=== PATIENT | male | born 1960 | race Caucasian/White ===

== ENCOUNTER 2024-07-23 14:37 | Outpatient (REF) | payer OTHER, SELFPAY | END 2024-07-23 14:38 | disposition home or self-care (01) | LOC: HO.XRAY 14:37 | PROVIDERS: PCP Internal Medicine; Visit Provider Orthopaedic Surgery | DX: M17.12 Unilateral primary osteoarthritis, left knee (principal) | CPT/HCPCS: 73560 ==

== ENCOUNTER 2024-09-02 09:54 | Outpatient (AMB) | payer OTHER, SELFPAY ==
--- NOTE | 2024-09-02 09:55 | MHC.OFFVIS ---
Vital Signs 09/02/24 09:56 Height 5 ft 10 in Weight 210 lb BMI 30.1 Intake Visit Reasons: Left knee pain Intake Note: Navin is a 64 year old male who presents with complaints of progressively worsening left knee pain. He describes his pain as sharp and severe in nature. He did undergo left knee ?meniscus? surgery by Dr. Persaud several years ago. He got fairly good relief from that surgery initially. His pain has gotten worse over the last year. He has failed the last 3 months of conservative treatment which has included physical therapy exercises, topical creams, Tylenol and anti-inflammatory medicines. He has had cortisone injections in the past which gave him no relief. At this point his left knee pain is interfering with his activities of daily living and his ability to sleep well through the night. He wishes to hold off on total knee replacement surgery for as long as possible. Allergies morphine [MORPHINE] Allergy (Unknown, Unverified 09/02/24 09:57) UNKNOWN Medication List - Last Reconciled 09/02/24 by Andrew Cochran MD aspirin 81 mg PO DAILY atorvastatin 40 mg PO DAILY fenofibrate micronized 200 mg PO DAILY omeprazole 20 mg PO QAM tamsulosin 0.4 mg PO BID PFSH Medical History (Updated 09/03/24 @ 07:31 by Andrew Cochran MD) BPH (benign prostatic hyperplasia) Pancreatitis Hyperlipidemia Hiatal hernia GERD (gastroesophageal reflux disease) Tubular adenoma of colon Surgical History (Updated 11/11/23 @ 09:54 by Marleny Lester RN) Hx of knee surgery Hx of colectomy Hx of carpal tunnel repair History of surgery on wrist Hx of hernia repair History of esophagogastroduodenoscopy (EGD) H/O colonoscopy Physical Exam Vital Signs: BMI result Body Mass Index 30.1 Const Other: Well-nourished well-developed very friendly male awake alert and oriented x3 in no acute distress Extrem Other: Bilateral lower extremity examination shows good capillary refill, no skin lesions noted, normal sensation light touch Left knee examination shows a minimal effusion, palpable crepitus with range of motion, pain with range of motion, range of motion from -3 degrees to 115 degrees, no instability Results Reviewed Results Reviewed: X-rays of the patient's left knee show joint space narrowing, subchondral sclerosis, no acute bony abnormalities Assessment & Plan Assessment & Plan (1) Left knee pain: Code(s): M25.562 - Pain in left knee (2) Osteoarthritis of left knee: Code(s): M17.12 - Unilateral primary osteoarthritis, left knee Category: Medical Plan Mr. Sommer presents with progressively worsening left knee pain due to osteoarthritis. I had a lengthy discussion with the patient regarding the treatment options. He wishes to hold off on surgery for as long as possible. I agree with this plan. He has not gotten good relief from cortisone injections in the past. Thus, I will see whether or not his insurance company will cover a viscosupplementation injection. I will see him back once the injection is available. Feel free to call me at any time should questions regarding his orthopedic management arise. Thank you very much for asking me to see this very friendly gentleman. I spent 22 minutes in reviewing the patient's records and imaging studies, seeing the patient and documenting in the medical record. Coding Level of Care Code New Pt Level 3 (75497) Complex EM visit Add On G2211 Diagnoses Left knee pain M25.562 Osteoarthritis of left knee M17.12
[2024-09-02 09:56] VITALS: BMI 30.1
--- OUTSIDE RECORDS SUMMARY | 2024-09-08 17:21 | XMS_ITS ---
Author Name [facility] Organization Unknown History of Medication Use Medication Directions Dispensed Refills Start Date End Date [facility] atorvastatin 40 mg tablet TAKE 1 TABLET BY MOUTH EVERY DAY 03/22/2023 active tamsulosin 0.4 mg capsule TAKE 1 CAPSULE BY MOUTH TWICE A DAY 04/17/2023 active sildenafil 50 mg tablet TAKE 1 TABLE 1 HOUR BEFORE SEXUAL ACTIVITY 03/22/2023 completed doxycycline hyclate 100 mg capsule TAKE 1 CAPSULE BY MOUTH TWICE A DAY 04/17/2023 completed tamsulosin 0.4 mg capsule TAKE 1 CAPSULE BY MOUTH TWICE A DAY 03/22/2023 active ciprofloxacin 500 mg tablet TAKE 1 TABLET BY MOUTH 1 HOUR BEFORE PROCEDURE AND 1 TABLET 1O HOURS AFTER 04/17/2023 completed triamcinolone acetonide 40 mg/mL suspension for injection Take 40 mg by injection route. 04/17/2023 active prednisone 10 mg tablet PLEASE SEE ATTACHED FOR DETAILED DIRECTIONS 03/22/2023 completed azelastine 0.05 % eye drops TAKE 1 DROP (OPHTHALMIC (EYE) - BILATERALLY) 2 TIMES PER DAY FOR 7 DAYS 03/22/2023 active prednisone 10 mg tablet PLEASE SEE ATTACHED FOR DETAILED DIRECTIONS 04/17/2023 completed triamcinolone acetonide 40 mg/mL suspension for injection Take 40 mg by injection route. 03/22/2023 active lidocaine HCl 10 mg/mL (1 %) injection solution Take 10 mg by injection route. 03/22/2023 active atorvastatin 40 mg tablet TAKE 1 TABLET BY MOUTH EVERY DAY 04/17/2023 active ciprofloxacin 500 mg tablet TAKE 1 TABLET BY MOUTH 1 HOUR BEFORE PROCEDURE AND 1 TABLET 1O HOURS AFTER 03/22/2023 completed lidocaine HCl 10 mg/mL (1 %) injection solution Take 10 mg by injection route. 04/17/2023 active omeprazole 20 mg capsule,delayed release TAKE 1 CAPSULE BY MOUTH EVERY DAY 03/22/2023 active Paxlovid 300 mg (150 mg x 2)-100 mg tablets in a dose pack TAKE 2 TAB (300MG) NIRMATRELVIR & TAKE 1 TAB (100MG) RITONAVIR TWICE A DAY X5 DAYS 03/22/2023 completed doxycycline hyclate 100 mg capsule TAKE 1 CAPSULE BY MOUTH TWICE A DAY 03/22/2023 completed sildenafil 50 mg tablet TAKE 1 TABLE 1 HOUR BEFORE SEXUAL ACTIVITY 04/17/2023 active azelastine 0.05 % eye drops TAKE 1 DROP (OPHTHALMIC (EYE) - BILATERALLY) 2 TIMES PER DAY FOR 7 DAYS 04/17/2023 active ibuprofen 800 mg tablet TAKE 1 TABLET BY MOUTH THREE TIMES A DAY WITH FOOD 04/17/2023 active ibuprofen 800 mg tablet TAKE 1 TABLET BY MOUTH THREE TIMES A DAY WITH FOOD 03/22/2023 active Paxlovid 300 mg (150 mg x 2)-100 mg tablets in a dose pack TAKE 2 TAB (300MG) NIRMATRELVIR & TAKE 1 TAB (100MG) RITONAVIR TWICE A DAY X5 DAYS 04/17/2023 completed fenofibrate 160 mg tablet TAKE 1 TABLET BY MOUTH EVERY DAY 04/17/2023 active fenofibrate 160 mg tablet TAKE 1 TABLET BY MOUTH EVERY DAY 03/22/2023 active omeprazole 20 mg capsule,delayed release TAKE 1 CAPSULE BY MOUTH EVERY DAY 04/17/2023 active Problems Problem Status Onset Date Problem Type Date of Resoluti on Source Lumbar spondylosis active 2023-04-15 ProblemAct [facility] Arthritis of left knee active 2022-12-14 ProblemAct [facility] Pain of left knee joint active 2022-12-14 ProblemAct [facility] Low back pain active 2023-04-15 ProblemAct [facility] Paresthesia of lower extremity active 2023-04-15 ProblemAct [facility]
--- OUTSIDE RECORDS SUMMARY | 2024-09-08 17:21 | XMS_ITS ---
Author Organization [facility] Address [address] [place] [address] Care Team Providers Care Delivery Specialist Name Role Phone Vladimir Saeed MD Primary Care Provider Unavailab Rashaad Foster Unavailable [phone] REASON FOR VISIT screening,hx polyps Encounters Encounter Location Date Provider Diagnosis [facility] [place] [address] [place] [phone] 09/11/2023 Rashaad Perez PLAN OF TREATMENT No Information
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
--- OUTSIDE RECORDS SUMMARY | 2024-09-08 17:21 | XMS_ITS ---
Author Organization [facility] Address [address] [place] [address] Care Team Providers Care Medical Record Consultant Name Role Phone Vladimir Saeed MD Primary Care Provider Unavailab Rashaad Foster Unavailable [phone] REASON FOR VISIT screening,hx polyps Encounters Encounter Location Date Provider Diagnosis [facility] Outpatient [address] [place] [id number] 11/13/2023 Rashaad Perez PLAN OF TREATMENT No Information
--- OUTSIDE RECORDS SUMMARY | 2024-09-08 17:21 | XMS_ITS ---
Author Organization [facility] Address [address] [place] [address] Care Team Providers Care Retail Banking Manager Name Role Phone Vladimir Saeed MD Primary Care Provider Unavailab Rashaad Foster [phone] REASON FOR VISIT cancel procedure Encounters Encounter Location Date Provider Diagnosis [facility] [address] [place] [address] 11/11/2023 Rashaad Perez PLAN OF TREATMENT No Information
--- OUTSIDE RECORDS SUMMARY | 2024-09-08 17:21 | XMS_ITS | Patient Health Record ---
Author Organization [facility] Address [address] [place] [address] Care Team Providers Care Weapons System Instrument Mechanic Name Role Phone Vladimir Saeed MD Primary Care Provider UnavailRashaad Goss Unavailable [phone] ALLERGIES No Known Allergies REASON FOR REFERRAL No Information MEDICATIONS Medication SIG (Take, Route, Frequency, Duration) Notes Start Date End Date Status Aspir-81 Active Omeprazole 20 MG 1 capsule 30 minutes before morning meal Orally Once a day Active Atorvastatin Calcium 40 MG 1 tablet Oral ly Once a day Active Fenofibrate Micronized 200 MG 1 capsule with a meal Orally Once a day Active Tamsulosin HCl 0.4 MG TAKE 1 CAPSULE BY MOUTH TWICE A DAY Oral for 90 Active SOCIAL HISTORY Sex Assigned At : Social History Observation Description Sex Assigned At Unknown Alcohol Screen Question Answer Notes Did you have a drink contain ing alcohol in the past year? Yes How often did you have a dri nk containing alcohol in the past year? 4 or more times a week (4 points) How many drinks did you have on a typical day when you were drinking in the past year? 3 or 4 drinks (1 point) How often did you have 6 or more drinks on one occasion in the past year? Never (0 point) Points 5 Interpretation Positive PROBLEMS Problem Type ICD Code Onset Dates Problem Status W/U Status Risk SNOMED Code Notes Problem Colon cancer screening (Z12.11) Active confirmed 376486484 Problem History of adenomatous polyp of colon (Z86.010) Active confirmed 492697124 Problem Gastroesophageal reflux disease without esophagitis (K21.9) Active confirmed 044591490 Encounters Encounter Location Date Provider Diagnosis [facility] Out[place] [address] [facility] [place] [id number] 09/11/2023 Rashaad Perez [facility] Outpatient [address] [facility] [place] [id number] 11/13/2023 Rashaad Ana [facility] [address] [place] [address] 11/11/2023 Rashaad Perez PLAN OF TREATMENT Future Test Test Name Order Date UPPER GI ENDOSCOPY 02/01/2015 COLONOSCOPY 06/18/2023 Insurance Providers Payer Name Payer Address Payer Phone Subscriber Number Group Number Insured Name Patient Relationship to Insured Coverage Start Date Coverage End Date [employer] [address] [place], [place] [id number] RAFAELA COREA Self - patient is the insured [facility] Insurance [address] [place] [address] RAFAELA COREA Self - patient is the insured MEDICAL (GENERAL) HISTORY Medical History History ICD Code Colon polyps--He had his nory ginal colonoscopy in January of 2004 with the removal of a 2 cm sigmoid colon tubular adenoma with focal high-grade dysplasia. Subsequent colonoscopies in 2004, 2007, and in April of 2012 have been negative for any recurrent polyps. GERD-an upper endoscopy in revealed a small hiatal hernia, but no other significant abnormalities Hyperlipidemia Denies MN,DM,CVA,Lung disease,renal dise ase Pancreatitis in 2014 due to alcohol EGD in 2014--small hiatal he rnia, gastritis, duodenitis, and reflux--biopsies were negative for H. pylori and negative for Cowan's esophagus. Elevated PSA but negative biopsies BPH Surgical History Surgery Date(Month/Year) Hernia surgery x3 Wrist surgery Carpal tunnel Sigmoid Colectomy in 04/2011 for divertculitis--this was done by Dr. Rocha at [facility] Knee surgery
== END 2024-09-02 10:28 | disposition home or self-care (01) ==
PROVIDERS: PCP Internal Medicine; Visit Provider Orthopaedic Surgery
DX: M25.562 Pain in left knee (principal); M17.12 Unilateral primary osteoarthritis, left knee
CPT/HCPCS: 99203; G2211

== ENCOUNTER → 2024-09-02 09:54 | Outpatient (BNVA) | payer OTHER, SELFPAY | PROVIDERS: PCP Internal Medicine; Visit Provider Orthopaedic Surgery | DX: M17.12 Unilateral primary osteoarthritis, left knee (principal) | CPT/HCPCS: 99202 ==

== ENCOUNTER 2024-09-14 08:55 | Outpatient (AMB) | payer OTHER, SELFPAY ==
--- NOTE | 2024-09-14 08:58 | MHC.OFFVIS ---
Vital Signs 09/14/24 09:02 Height 5 ft 10 in Weight 210 lb BMI 30.1 Intake Visit Reasons: Left knee pain Intake Note: Navin is a 64 year old male who presents with complaints of progressively worsening left knee pain. He describes his pain as sharp in nature. He has failed the last 3 months of conservative treatment which has consisted of physical therapy exercises, Tylenol and anti-inflammatory medicines. He wishes to hold off on surgery for as long as possible. Allergies morphine [MORPHINE] Allergy (Unknown, Unverified 09/14/24 09:02) UNKNOWN Medication List - Last Reconciled 09/14/24 by Andrew Cochran MD aspirin 81 mg PO DAILY atorvastatin 40 mg PO DAILY fenofibrate micronized 200 mg PO DAILY omeprazole 20 mg PO QAM tamsulosin 0.4 mg PO BID PFSH Medical History (Updated 09/03/24 @ 07:31 by Andrew Cochran MD) BPH (benign prostatic hyperplasia) Pancreatitis Hyperlipidemia Hiatal hernia GERD (gastroesophageal reflux disease) Tubular adenoma of colon Surgical History (Updated 11/11/23 @ 09:54 by Marleny Lester RN) Hx of knee surgery Hx of colectomy Hx of carpal tunnel repair History of surgery on wrist Hx of hernia repair History of esophagogastroduodenoscopy (EGD) H/O colonoscopy Physical Exam Vital Signs: BMI result Body Mass Index 30.1 Const Other: Well-nourished well-developed very friendly male awake alert and oriented x3 in no acute distress Extrem Other: Bilateral lower extremity examination shows good capillary refill, no skin lesions noted, normal sensation light touch Left knee examination shows a minimal effusion, palpable crepitus with range of motion, pain with range of motion, no instability Office Procedures AMB Joint Injection/Aspiration Joint Injection/Aspiration Primary Site: left knee Prep: site was prepped using aseptic technique Injected: 20 mg of (Euflexxa viscosupplementation) and 1% plain lidocaine Procedure: The patient tolerated the procedure well Coding 69963 - Large joint Procedure code (CPT) selection complete Results Reviewed Results Reviewed: X-rays of the patient's left knee taken previously show joint space narrowing, subchondral sclerosis, no acute bony abnormalities Assessment & Plan Assessment & Plan (1) Osteoarthritis of left knee: Code(s): M17.12 - Unilateral primary osteoarthritis, left knee Category: Medical (2) Left knee pain: Code(s): M25.562 - Pain in left knee Plan Mr. Sommer presents with left knee pain due to osteoarthritis. The risks and benefits of a series of Euflexxa viscosupplementation injections were discussed at length with the patient. The patient wished to proceed. He tolerated the 1st injection well. He will follow up next week as scheduled. Feel free to call me at any time should questions regarding his orthopedic management arise. I spent 20 minutes in reviewing the patient's records and imaging studies, seeing the patient and documenting in the medical record. Orders: Orders AMB Joint Injection/Aspiration Today M17.12 - Unilateral primary osteoarthritis, left knee Coding Level of Care Code Est Pt Level 3 (87082) Complex EM visit Add On G2211 Diagnoses Osteoarthritis of left knee M17.12 Left knee pain M25.562 CPT Codes Coding - 95286 Large joint: 74066 - Large joint ([id number])
[2024-09-14 09:02] VITALS: BMI 30.1
--- OUTSIDE RECORDS SUMMARY | 2024-09-14 09:07 | XMS_ITS | Patient Health Record ---
Author Organization [facility] Address [address] [place] [address] Care Team Providers Care Hide Buyer Name Role Phone Vladimir Saeed MD Primary Care Provider UnavailRashaad Goss Unavailable [phone] ALLERGIES No Known Allergies REASON FOR REFERRAL [...] Problem Colon cancer screening (Z12.11) Active confirmed 283173468 Problem History of adenomatous polyp of colon (Z86.010) Active confirmed 927251965 Problem Gastroesophageal reflux disease without esophagitis (K21.9) Active confirmed 294363426 Encounters Encounter Location Date Provider Diagnosis [facility] [place] [address] [facility] [place] [id number] 11/13/2023 Rashaad Perez [facility] [address] [place] [address] 11/11/2023 Rashaad Perez PLAN OF TREATMENT Future Test Test Name Order Date UPPER GI ENDOSCOPY 02/01/2015 COLONOSCOPY 06/18/2023 Insurance Providers Payer Name Payer Address Payer Phone Subscriber Number Group Number Insured Name Patient Relationship to Insured Coverage Start Date Coverage End Date [employer] [address] [place], [place] [id number] ANMOL PANCHITOSANJAY Self - patient is the insured [facility] Insurance [address] [place] [address] ANMOLPANCHITOSANJAY Self - patient is the insured MEDICAL [...] but no other significant abnormalities Hyperlipidemia Denies NM,DM,CVA,Lung disease,renal dise ase Pancreatitis in 2014 due to alcohol EGD in 2014--small hiatal he rnia, gastritis, duodenitis, and reflux--biopsies were negative for H. pylori and negative for Cowan's esophagus. Elevated PSA but negative biopsies BPH Surgical History Surgery Date(Month/Year) Hernia surgery x3 Wrist surgery Carpal tunnel Sigmoid Colectomy in 04/2011 for divertculitis--this was done by Dr. Rocha at [facility] Knee surgery
--- OUTSIDE RECORDS SUMMARY | 2024-09-14 09:07 | XMS_ITS ---
Author Organization [facility] Address [address] [place] [address] Care Team Providers Care Electronic Scale Tester Name Role Phone Vladimir Saeed MD Primary Care Provider Unavailab Rashaad Foster Unavailable [phone] REASON FOR VISIT screening,hx polyps Encounters Encounter Location Date Provider Diagnosis [facility] Outpatient [address] [place] [id number] 09/11/2023 Rashaad Perez PLAN OF TREATMENT No Information
--- OUTSIDE RECORDS SUMMARY | 2024-09-14 09:07 | XMS_ITS ---
Author Organization [facility] Address [address] [place] [address] Care Team Providers Care Scheduler Name Role Phone Vladimir Saeed MD Primary Care Provider Unavailab Rashaad Foster [phone] REASON FOR VISIT cancel procedure Encounters Encounter Location Date Provider Diagnosis [facility] [address] [place] [id number] 11/11/2023 Rashaad Perez PLAN OF TREATMENT No Information
--- OUTSIDE RECORDS SUMMARY | 2024-09-14 09:07 | XMS_ITS ---
Author Organization [facility] Address [address] [place] [address] Care Team Providers Care Cathode Ray Tube Salvage Processor Name Role Phone Vladimir Saeed MD Primary Care Provider Unavailab Rashaad Foster Unavailable [phone] REASON FOR VISIT screening,hx polyps Encounters Encounter Location Date Provider Diagnosis [facility] Outpatient [address] [place] [id number] 11/13/2023 Rashaad Perez PLAN OF TREATMENT No Information
== END 2024-09-14 09:14 | disposition home or self-care (01) ==
PROVIDERS: PCP Internal Medicine; Visit Provider Orthopaedic Surgery
DX: M17.12 Unilateral primary osteoarthritis, left knee (principal)
CPT/HCPCS: 20610; 99213

== ENCOUNTER → 2024-09-14 08:55 | Outpatient (BNVA) | payer OTHER, SELFPAY | PROVIDERS: PCP Internal Medicine; Visit Provider Orthopaedic Surgery | DX: M17.12 Unilateral primary osteoarthritis, left knee (principal) | CPT/HCPCS: 20610; 99212; J2003; J7323 ==

== ENCOUNTER 2024-09-21 08:56 | Outpatient (AMB) | payer OTHER, SELFPAY ==
--- NOTE | 2024-09-21 08:57 | MHC.OFFVIS ---
Vital Signs 09/21/24 08:58 Height 5 ft 10 in Weight 210 lb BMI 30.1 Intake Visit Reasons: Inj-Left Knee Euflexxa #2 Intake Note: Navin is a 64 year old male who presents for follow up of his left knee pain. He states that he got mild relief from the 1st Euflexxa injection. He continues with his home exercise program. Allergies morphine [MORPHINE] Allergy (Unknown, Unverified 09/21/24 08:58) UNKNOWN Medication List - Last Reconciled 09/21/24 by Andrew Cochran MD aspirin 81 mg PO DAILY atorvastatin 40 mg PO DAILY fenofibrate micronized 200 mg PO DAILY omeprazole 20 mg PO QAM tamsulosin 0.4 mg PO BID PFSH Medical History (Updated 09/03/24 @ 07:31 by Andrew Cochran MD) BPH (benign prostatic hyperplasia) Pancreatitis Hyperlipidemia Hiatal hernia GERD (gastroesophageal reflux disease) Tubular adenoma of colon Surgical History (Updated 11/11/23 @ 09:54 by Marleny Lester RN) Hx of knee surgery Hx of colectomy Hx of carpal tunnel repair History of surgery on wrist Hx of hernia repair History of esophagogastroduodenoscopy (EGD) H/O colonoscopy Physical Exam Vital Signs: BMI result Body Mass Index 30.1 Extrem Other: Left knee examination shows a minimal effusion, palpable crepitus with range of motion, no instability Office Procedures AMB Joint Injection/Aspiration Joint Injection/Aspiration Primary Site: left knee Injected: 20 mg of (Euflexxa viscosupplementation) and 1% plain lidocaine Procedure: The patient tolerated the procedure well Coding 25089 - Large joint Procedure code (CPT) selection complete Results Reviewed Results Reviewed: X-rays of the patient's left knee taken previously show joint space narrowing, subchondral sclerosis, no acute bony abnormalities Assessment & Plan Assessment & Plan (1) Osteoarthritis of left knee: Code(s): M17.12 - Unilateral primary osteoarthritis, left knee Category: Medical Plan Mr. Sommer presents with left knee pain due to osteoarthritis. The risks and benefits of a 2nd Euflexxa injection were discussed at length with the patient. The patient wished to proceed. He tolerated the injection well. He will continue with his home exercise program. He will follow up next week as scheduled. Feel free to call me at any time should questions regarding his orthopedic management arise. Orders: Orders AMB Joint Injection/Aspiration Today M17.12 - Unilateral primary osteoarthritis, left knee Coding Level of Care Code Procedure Only Diagnoses Osteoarthritis of left knee M17.12 CPT Codes Coding - 79449 Large joint: 46153 - Large joint ([id number])
[2024-09-21 08:58] VITALS: BMI 30.1
--- OUTSIDE RECORDS SUMMARY | 2024-09-21 08:59 | XMS_ITS ---
Author Organization [facility] Address [address] [place] [address] Care Team Providers Care Car Sweeper Name Role Phone Vladimir Saeed MD Primary Care Provider Unavailab Rashaad Foster [phone] REASON FOR VISIT cancel procedure Encounters Encounter Location Date Provider Diagnosis [facility] [address] [place] [phone] 11/11/2023 Rashaad Perez PLAN OF TREATMENT No Information
--- OUTSIDE RECORDS SUMMARY | 2024-09-21 08:59 | XMS_ITS ---
Author Organization [facility] Address [address] [place] [address] Care Team Providers Care Airline Pilot Flight Instructor Name Role Phone Vladimir Saeed MD Primary Care Provider Unavailab Rashaad Foster Unavailable [phone] REASON FOR VISIT screening,hx polyps Encounters Encounter Location Date Provider Diagnosis [facility] Outpatient [address] [place] [id number] 09/11/2023 Rashaad Perez PLAN OF TREATMENT No Information
--- OUTSIDE RECORDS SUMMARY | 2024-09-21 08:59 | XMS_ITS | Patient Health Record ---
Author Organization [facility] Address [address] [place] [address] Care Team Providers Care Yard Crane Operator Name Role Phone Vladimir Saeed MD Primary Care Provider UnavailRashaad Goss Unavailable [phone] ALLERGIES No Known Allergies REASON FOR REFERRAL [...] Problem Colon cancer screening (Z12.11) Active confirmed 748815449 Problem History of adenomatous polyp of colon (Z86.010) Active confirmed 261304978 Problem Gastroesophageal reflux disease without esophagitis (K21.9) Active confirmed 767402880 Encounters Encounter Location Date Provider Diagnosis [facility] [place] [address] [facility] [place] [id number] 11/13/2023 Rashaad Perez [facility] [address] [place] [address] 11/11/2023 Rashaad Perez PLAN OF TREATMENT Future Test Test Name Order Date UPPER GI ENDOSCOPY 02/01/2015 COLONOSCOPY 06/18/2023 Insurance Providers Payer Name Payer Address Payer Phone Subscriber Number Group Number Insured Name Patient Relationship to Insured Coverage Start Date Coverage End Date [employer] [address] [place], [place] [id number] ANMOL PANCHITOSANJAY Self - patient is the insured [facility] Insurance [address] [place] [address] ANMOLPANCHITOSANJAY Self - patient is the insured [...] but no other significant abnormalities Hyperlipidemia Denies ID,DM,CVA,Lung disease,renal dise ase Pancreatitis in 2014 due to alcohol EGD in 2014--small hiatal he rnia, gastritis, duodenitis, and reflux--biopsies were negative for H. pylori and negative for Cowan's esophagus. Elevated PSA but negative biopsies BPH Surgical History Surgery Date(Month/Year) Hernia surgery x3 Wrist surgery Carpal tunnel Sigmoid Colectomy in 04/2011 for divertculitis--this was done by Dr. Rocha at [facility] Knee surgery
--- OUTSIDE RECORDS SUMMARY | 2024-09-21 08:59 | XMS_ITS ---
Author Organization [facility] Address [address] [place] [address] Care Team Providers Care Fuel Cell Test Engineer Name Role Phone Vladimir Saeed MD Primary Care Provider Unavailab Rashaad Foster Unavailable [phone] REASON FOR VISIT screening,hx polyps Encounters Encounter Location Date Provider Diagnosis [facility] [place] [address] [place] [id number] 11/13/2023 Rashaad Perez PLAN OF TREATMENT No Information
--- OUTSIDE RECORDS SUMMARY | 2024-09-21 08:59 | XMS_ITS | Data Portability ---
Author Organization [place] [facility] R[facility] [place] Address [address] [place] [address] Care Team Providers Care Instructional Systems Specialist Name Role Phone TATUM HUNTER Primary Care [...] EMG report. The MRI was obtained at [facility] on May 20, 2009. Per report there is asymmetric transitional vertebra at the lumbosacral junction minor multilevel degenerative disc disease with small right lateral annular tear at L5 transitional vertebral level. EMG from [facility] on August 05, 2008 revealed left lateral [...] worse with prolonged standing. Treatments today include vfrz-exw-mrgsalg medication, activity modification, thermal modalities. Plan: 63-year-old [...] He will follow up in 4-6 weeks. [email or web address] Not available 04/15/2023 17:26:50 06/10/2023 06/10/2023 HPI Navin is a generally healthy 63-year-old male Who returns for continued management of his lumbar spine. He notes a remote back injury in 2007, He had an evaluation with MRI and nerve conduction test at that time. The MRI was obtained at [facility] on May 20, 2009. Per report there is asymmetric transitional vertebra at the lumbosacral junction minor multilevel degenerative disc disease with small right lateral annular tear at L5 transitional vertebral level. EMG from [facility] on August 05, 2008 revealed left lateral [...] notes some swelling in his left knee [email or web address] Not available 06/10/2023 09:40:33 Plan of Treatment Reminders Order Date Submit Date Provider Last Modified By Organization Details Last Modified Time Details Appointments None recorded. Lab None recorded. Referral None recorded. Procedures None recorded. Surgeries None recorded. Imaging XR, lumbosacral spine, 2 or 3 view 2022 023 [email or web address] [facility], [address], [place] [address], [place], [address], 17:06:15 MRI, lumbar spine, w/o contrast - Radiating left leg pain and paresthesia s, completed physical therapy without relief. Please evaluate for left-sided neural compression . 2022 023 [email or web address] Not available 14:11:29 Medication Orders triamcinolo ne acetonide 40 mg/mL suspension for injection 2022 023 [id number], [address] [place], [address], 3 09:30:35 lidocaine HCl 10 mg/mL (1 %) injection solution 2022 023 [id number], [address] [place], [address], 09:30:35 Patient TargetsNo targets recorded. Patient Instructions Encounter Date Encounter Id Patient Instructions Last Modified By Organization Details Last Modified Time 04/15/2023 [id number] AP lateral radiographs lumbar spine were obtained in the office today. This revealed lumbar scoliosis. Transitional lumbosacral anatomy, multilevel disc space narrowing. Facet arthropathy. No evidence spondylolisthesis or fracture. [email or web address] Not available 04/15/2023 17:27:33 Reason for Referral None Reported. Problems Name Problem SNOMED Code Status Onset Date Resolution Date Notes Provider Name and Address Organization Details Recorded Time Low back pain 695329782 Active 2022 DMITRIY JALLOH PA-C [address], [place], [address], [place] [facility] [place] 3 17:26:50 Paresthesia of lower extremity 081134079 Active 2022 DMITRIY JALLOH PA-C [address], [place], [address], [place] [facility] 3 17:28:04 Lumbar spondylosis 985956896 Active 2022 DMITRIY JALLOH PA-C [address], [place], [address], [place] [facility] [place] 3 17:28:05 Arthritis of left knee 2912015658762 104 Active 2022 MINDI LORA PA-C [address], [place], [address], [place] [facility] [place] 3 09:28:04 Pain of left knee joint 8448612543739 07 Active 2022 MINDI LORA PA-C [address], [place], [address], [place] [facility] [place] 3 09:30:24 Problem Notes None recorded. Procedures Surgical History Date Name Laterality Status Provider Name and Address Organization Details Recorded Time 12/14/2022 Knee Joint/Burs a Asp & Inj completed MINDI LORA PA-C [address], [place], [address], [place] [facility] [place] 12/14/2022 09:27:39 Imaging Results None recorded. [...] Updated DateTime 12/14/2022 177.8 cm 30.1 kg/m2 39776.[address] [facility] [place] 12/14/2022 08:37:01 Date Recorded Body height Body mass index (BMI) Body weight Provider Name and Address Organization Details Last Updated DateTime 04/15/2023 172.72 cm 31.5 kg/m2 20751.62 callum Forbes [facility] 04/15/2023 16:08:24 Date Recorded Body height Body mass index (BMI) Body weight Provider Name and Address Organization Details Last Updated DateTime 06/10/2023 175.26 cm 30.7 kg/m2 87309.21 callum Moore [facility] 06/10/2023 09:19:03 Social History Question Answer Notes LastModified by Organizat ion Details LastModified Time Tobacco Smoking Status Former Smoker Noah Enedelia arzola, [facility], [facility] 12/14/2022 08:38:20 What Is Your Level Of Alcohol Consumption? Heavy [email or web address] Information not available 12/14/2022 When Did You Quit Smoking? 11-15yearss incelastcig arette [email or web address] Information not available 12/14/2022 Do You Use Any Illicit Or Recreational Drugs? No [email or web address] Information not available 12/14/2022 How Many Years Have You Smoked Tobacco? 30 [email or web address] Information not available 12/14/2022 Do You Or Have You Ever Used Any Other Forms Of Tobacco Or Nicotine? No [email or web address] Information not available 12/14/2022 Sex: Unknown Functional Status None recorded. Mental Status None recorded. Family History Relationship Description Onset Age of this Age Resolved Age Notes LastModified by Organization Details LastModified Time Brother Arthritis [email or web address] Not kaykay ilable 12/14/2022 08:38:40 Brother Hyperlipidem ia [email or web address] Not available 08:38:57 Father Hyperlipidem ia [email or web address] Not available 08:38:57 Medical History Condition Response High Cholesterol Y Past Encounters Encounter ID Performer Location Encounter Start Date Encounter Closed Date Diagnosis/Indication Diagnosis SNOMED-CT Code Diagnosis ICD10 Code [id number] MD EDINSON Hagen [address] [place] [address] [place] [address] 12/14/2022 08:22:20 12/14/2022 09:13:20 Arthritis of left knee 4036037661 734964 M13.862 Pain of le ft knee joint 7401471456 54085 M25.562 [id number] MD EDINSON Ambrosio [facility] [address] [facility] [address] [place] [address] 03/20/2023 13:38:16 03/20/2023 14:12:54 Follow-up visit [id number] Z09 [id number] MD EDINSON Solorzano [address] [place] [address] 04/15/2023 15:40:09 04/15/2023 16:51:16 Low back pain 735729263 M54.50 Paresthesi a of lower extremity 450476761 R20.2 Lumbar spondylosis 94197 0009 M47.896 [id number] MD EDINSON Solorzano [address] [address] 06/10/2023 08:59:29 06/10/2023 09:41:21 Low back pain 605483411 M54.50 Paresthesi a of lower extremity 986239999 R20.2 Lumbar spondylosis 14693 0009 M47.896 M79.605 Health Concerns Section Related Observation LastModified by Organization Detai ls LastModified Time None Recorded Concern Status LastModified by Organization Details LastModified Time None Recorded Advance Directives Directive None Recorded Payers Encounter Date Sequence Insurance Name Policy Number Policy Hunt Covered Member ID Hunt Member ID Guarantor Name 12/14/2022 1 [employer] (POS) [id number] Emma Sommer [id number] Christadeliaer Kemal 03/20/2023 1 [employer] (POS) [id number] Emma Sommer [id number] Elierer Kemal 04/15/2023 1 [employer] (POS) [id number] Emma Sommer [id number] Navin Sommer 06/10/2023 1 [employer] (POS) [id number] Emma Sommer [id number] Navin Sommer Notes Date Note Type [...] details of Report MINDI LORA PA-C [address] [facility],[address] [address], [place], [address], [place] [facility] [place] 12/14/2022 09:32:29 03/20/2023 text/html Assessment & [...] for scheduled follow-up. MINDI LORA PA-C [address] [facility],[place] [address] [address], [place], [address], [place] [facility] [place] 03/20/2023 15:35:00 06/10/2023 text/html Prior Visit [...] EMG report. The MRI was obtained at [facility] on May 20, 2009. Per report there is asymmetric transitional vertebra at the lumbosacral junction minor multilevel degenerative disc disease with small right lateral annular tear at L5 transitional vertebral level. EMG from [facility] on August 05, 2008 revealed left lateral [...] worse with prolonged standing. Treatments today include rvay-lpz-ykwrdsy medication, activity modification, thermal modalities. Plan: 63-year-old [...] DMITRIY JALLOH PA-C [address], [place], [address], [place] [facility] [place] 06/10/2023 09:42:04
== END 2024-09-21 09:15 | disposition home or self-care (01) ==
PROVIDERS: PCP Internal Medicine; Visit Provider Orthopaedic Surgery
DX: M17.12 Unilateral primary osteoarthritis, left knee (principal)
CPT/HCPCS: 20610

== ENCOUNTER → 2024-09-21 08:56 | Outpatient (BNVA) | payer OTHER, SELFPAY | PROVIDERS: PCP Internal Medicine; Visit Provider Orthopaedic Surgery | DX: M17.12 Unilateral primary osteoarthritis, left knee (principal) | CPT/HCPCS: 20610; J2003; J7323 ==

== ENCOUNTER 2024-10-01 08:42 | Outpatient (AMB) | payer OTHER, SELFPAY ==
--- NOTE | 2024-10-01 08:43 | MHC.OFFVIS ---
Vital Signs 10/01/24 08:48 Height 5 ft 10 in Weight 210 lb BMI 30.1 Intake Visit Reasons: Inj-Left Knee Euflexxa #3 Intake Note: Navin is a 64 year old male who presents for his last dose of Euflexxa on the left knee. He states that he has gotten mild relief from the 1st 2 injections. He continues with his home exercise program. Allergies morphine [MORPHINE] Allergy (Unknown, Unverified 10/01/24 08:48) UNKNOWN Medication List - Last Reconciled 10/01/24 by Andrew Cochran MD aspirin 81 mg PO DAILY atorvastatin 40 mg PO DAILY fenofibrate micronized 200 mg PO DAILY omeprazole 20 mg PO QAM tamsulosin 0.4 mg PO BID PFSH Medical History (Updated 09/03/24 @ 07:31 by Andrew Cochran MD) BPH (benign prostatic hyperplasia) Pancreatitis Hyperlipidemia Hiatal hernia GERD (gastroesophageal reflux disease) Tubular adenoma of colon Surgical History (Updated 11/11/23 @ 09:54 by Marleny Lester RN) Hx of knee surgery Hx of colectomy Hx of carpal tunnel repair History of surgery on wrist Hx of hernia repair History of esophagogastroduodenoscopy (EGD) H/O colonoscopy Physical Exam Vital Signs: BMI result Body Mass Index 30.1 Extrem Other: Left knee examination shows a minimal effusion, palpable crepitus with range of motion, pain with range of motion, no instability Office Procedures AMB Joint Injection/Aspiration Joint Injection/Aspiration Primary Site: left knee Prep: site was prepped using aseptic technique Injected: 20 mg of (Euflexxa viscosupplementation) and 1% plain lidocaine Procedure: The patient tolerated the procedure well Coding 92076 - Large joint Procedure code (CPT) selection complete Results Reviewed Results Reviewed: X-rays of the patient's left knee show joint space narrowing, subchondral sclerosis, no acute bony abnormalities Assessment & Plan Assessment & Plan (1) Osteoarthritis of left knee: Code(s): M17.12 - Unilateral primary osteoarthritis, left knee Category: Medical Plan Navin presents with left knee pain due to osteoarthritis. The risks and benefits of a 3rd Euflexxa injection were discussed at length with the patient. The patient wished to proceed. He tolerated the injection well. He will continue with his home exercise program. He will contact me prior to his follow-up appointment in 3 months should any questions or concerns arise. Feel free to call me at any time should questions regarding his orthopedic management arise. Orders: Orders AMB Joint Injection/Aspiration Today M17.12 - Unilateral primary osteoarthritis, left knee Coding Level of Care Code Procedure Only Diagnoses Osteoarthritis of left knee M17.12 CPT Codes Coding - 27536 Large joint: 02441 - Large joint ([id number])
--- OUTSIDE RECORDS SUMMARY | 2024-10-01 08:44 | XMS_ITS | Patient Health Record ---
Author Organization [facility] Address [address] [place] [address] Care Team Providers Care Hotel Valet Attendant Name Role Phone Vladimir Saeed MD Primary Care Provider UnavailRashaad Goss Unavailable [phone] ALLERGIES No Known Allergies REASON FOR REFERRAL [...] Problem Colon cancer screening (Z12.11) Active confirmed 914778010 Problem History of adenomatous polyp of colon (Z86.010) Active confirmed 733564254 Problem Gastroesophageal reflux disease without esophagitis (K21.9) Active confirmed 918211901 Encounters Encounter Location Date Provider Diagnosis [facility] Out[facility] [address] [facility] [place] [id number] 11/13/2023 Rashaad Perez [facility] [address] [place] [address] 11/11/2023 Rashaad Perez PLAN OF TREATMENT Future Test Test Name Order Date UPPER GI ENDOSCOPY 02/01/2015 COLONOSCOPY 06/18/2023 Insurance Providers Payer Name Payer Address Payer Phone Subscriber Number Group Number Insured Name Patient Relationship to Insured Coverage Start Date Coverage End Date [employer] [address] [place], [place] [id number] ANMOL PANCHITOSANJAY Self - patient is the insured [facility] Insurance [address] [place] [address] ANMOLPANCHITOSANJAY Self - patient is the insured [...] but no other significant abnormalities Hyperlipidemia Denies ME,DM,CVA,Lung disease,renal dise ase Pancreatitis in 2014 due to alcohol EGD in 2014--small hiatal he rnia, gastritis, duodenitis, and reflux--biopsies were negative for H. pylori and negative for Cowan's esophagus. Elevated PSA but negative biopsies BPH Surgical History Surgery Date(Month/Year) Hernia surgery x3 Wrist surgery Carpal tunnel Sigmoid Colectomy in 04/2011 for divertculitis--this was done by Dr. Rocha at [facility] Knee surgery
--- OUTSIDE RECORDS SUMMARY | 2024-10-01 08:44 | XMS_ITS ---
Author Organization [facility] Address [address] [place] [address] Care Team Providers Care Lead Rider Name Role Phone Vladimir Saeed MD Primary Care Provider Unavailab Rashaad Foster Unavailable [phone] REASON FOR VISIT screening,hx polyps Encounters Encounter Location Date Provider Diagnosis [facility] [place] [address] [place] [id number] 09/11/2023 Rashaad Perez PLAN OF TREATMENT No Information
--- OUTSIDE RECORDS SUMMARY | 2024-10-01 08:44 | XMS_ITS ---
Author Organization [place] Address [address] [place] [address] Care Team Providers Care Calibration Technician Name Role Phone Vladimir Saeed MD Primary Care Provider Unavailab Rashaad Foster Unavailable [phone] REASON FOR VISIT screening,hx polyps Encounters Encounter Location Date Provider Diagnosis [facility] [place] [address] [place] [id number] 11/13/2023 Rashaad Perez PLAN OF TREATMENT No Information
--- OUTSIDE RECORDS SUMMARY | 2024-10-01 08:44 | XMS_ITS ---
Author Organization [facility] Address [address] [place] [address] Care Team Providers Care Vehicle Maintenance Supervisor Name Role Phone Vladimir Saeed MD Primary Care Provider Unavailab Rashaad Foster [phone] REASON FOR VISIT cancel procedure Encounters Encounter Location Date Provider Diagnosis [facility] [address] [place] [address] 11/11/2023 Rashaad Perez PLAN OF TREATMENT No Information
--- OUTSIDE RECORDS SUMMARY | 2024-10-01 08:45 | XMS_ITS | Data Portability ---
Author Organization [place] [facility] R[facility]h [facility] [place]ONE [place] Address [address] [place] [address] Care Team Providers Care Operations And Maintenance Technician Name Role Phone TATUM HUNTER Primary Care [...] EMG report. The MRI was obtained at [facility] on May 20, 2009. Per report there is asymmetric transitional vertebra at the lumbosacral junction minor multilevel degenerative disc disease with small right lateral annular tear at L5 transitional vertebral level. EMG from [facility] on August 05, 2008 revealed left lateral [...] worse with prolonged standing. Treatments today include vsur-fet-yyrzvii medication, activity modification, thermal modalities. Plan: 63-year-old [...] He will follow up in 4-6 weeks. [email or web address] Not available 04/15/2023 17:26:50 06/10/2023 06/10/2023 HPI Navin is a generally healthy 63-year-old male Who returns for continued management of his lumbar spine. He notes a remote back injury in 2007, He had an evaluation with MRI and nerve conduction test at that time. The MRI was obtained at [facility] on May 20, 2009. Per report there is asymmetric transitional vertebra at the lumbosacral junction minor multilevel degenerative disc disease with small right lateral annular tear at L5 transitional vertebral level. EMG from [facility] on August 05, 2008 revealed left lateral [...] notes some swelling in his left knee [email or web address] Not available 06/10/2023 09:40:33 Plan of Treatment Reminders Order Date Submit Date Provider Last Modified By Organization Details Last Modified Time Details Appointments None recorded. Lab None recorded. Referral None recorded. Procedures None recorded. Surgeries None recorded. Imaging XR, lumbosacral spine, 2 or 3 view 2022 023 [email or web address] [facility], [address], [place] [address], [place], [address], 17:06:15 MRI, lumbar spine, w/o contrast - Radiating left leg pain and paresthesia s, completed physical therapy without relief. Please evaluate for left-sided neural compression . 2022 023 Not available 14:11:29 Medication Orders triamcinolo ne acetonide 40 mg/mL suspension for injection 2022 023 [id number], [address] [place], [address], 3 09:30:35 lidocaine HCl 10 mg/mL (1 %) injection solution 2022 023 [id number], [address] [place], [address], 09:30:35 Patient TargetsNo targets recorded. Patient Instructions Encounter Date Encounter Id Patient Instructions Last Modified By Organization Details Last Modified Time 04/15/2023 [id number] AP lateral radiographs lumbar spine were obtained in the office today. This revealed lumbar scoliosis. Transitional lumbosacral anatomy, multilevel disc space narrowing. Facet arthropathy. No evidence spondylolisthesis or fracture. [email or web address] Not available 04/15/2023 17:27:33 Reason for Referral None Reported. Problems Name Problem SNOMED Code Status Onset Date Resolution Date Notes Provider Name and Address Organization Details Recorded Time Low back pain 722218214 Active 2022 DMITRIY JALLOH PA-C [address], [place], [address], [place] [facility] [place] 3 17:26:50 Paresthesia of lower extremity 634313400 Active 2022 DMITRIY JALLOH PA-C [address], [place], [address], [place] [facility] 3 17:28:04 Lumbar spondylosis 391546993 Active 2022 DMITRIY JALLOH PA-C [address], [place], [address], [place] [facility] 3 17:28:05 Arthritis of left knee 2651728515312 104 Active 2022 MINDI LORA PA-C [address], [facility] [place], [address], [place] [facility] 3 09:28:04 Pain of left knee joint 8648369081453 07 Active 2022 MINDI LORA PA-C [address], [facility] [place], [address], [place] [facility] 3 09:30:24 Problem Notes None recorded. Procedures Surgical History Date Name Laterality Status Provider Name and Address Organization Details Recorded Time 12/14/2022 Knee Joint/Burs a Asp & Inj completed MINDI LORA PA-C [address], [place], [address], [place] [facility] 12/14/2022 09:27:39 Imaging Results None recorded. [...] Updated DateTime 12/14/2022 177.8 cm 30.1 kg/m2 29837.[address] [place] [facility] 12/14/2022 08:37:01 Date Recorded Body height Body mass index (BMI) Body weight Provider Name and Address Organization Details Last Updated DateTime 04/15/2023 172.72 cm 31.5 kg/m2 62898.62 callum Forbes [facility] 04/15/2023 16:08:24 Date Recorded Body height Body mass index (BMI) Body weight Provider Name and Address Organization Details Last Updated DateTime 06/10/2023 175.26 cm 30.7 kg/m2 63562.21 callum Moore [facility] 06/10/2023 09:19:03 Social History Question Answer Notes LastModified by Organizat ion Details LastModified Time Tobacco Smoking Status Former Smoker Noah Enedelia arzola, [facility], [facility] 12/14/2022 08:38:20 What Is Your Level Of Alcohol Consumption? Heavy [email or web address] Information not available 12/14/2022 When Did You Quit Smoking? 11-15yearss incelastcig arette [email or web address] Information not available 12/14/2022 Do You Use Any Illicit Or Recreational Drugs? No [email or web address] Information not available 12/14/2022 How Many Years Have You Smoked Tobacco? 30 [email or web address] Information not available 12/14/2022 Do You Or Have You Ever Used Any Other Forms Of Tobacco Or Nicotine? No [email or web address] Information not available 12/14/2022 Sex: Unknown Functional Status None recorded. Mental Status None recorded. Family History Relationship Description Onset Age of this Age Resolved Age Notes LastModified by Organization Details LastModified Time Brother Arthritis [email or web address] Not kaykay ilable 12/14/2022 08:38:40 Brother Hyperlipidem ia [email or web address] Not available 08:38:57 Father Hyperlipidem ia [email or web address] Not available 08:38:57 Medical History Condition Response High Cholesterol Y Past Encounters Encounter ID Performer Location Encounter Start Date Encounter Closed Date Diagnosis/Indication Diagnosis SNOMED-CT Code Diagnosis ICD10 Code [id number] MD EDINSON Hagen [address] [place] [address] [place] [address] 12/14/2022 08:22:20 12/14/2022 09:13:20 Arthritis of left knee 3203732867 817696 M13.862 Pain of le ft knee joint 4993492200 75915 M25.562 [id number] MD EDINSON Ambrosio [facility] [address] [facility] [address] [place] [address] 03/20/2023 13:38:16 03/20/2023 14:12:54 Follow-up visit [id number] Z09 [id number] MD EDINSON Solorzano [address] [place] [address] 04/15/2023 15:40:09 04/15/2023 16:51:16 Low back pain 913832753 M54.50 Paresthesi a of lower extremity 802736463 R20.2 Lumbar spondylosis 72516 0009 M47.896 [id number] MD EDINSON Solorzano [address] [address] 06/10/2023 08:59:29 06/10/2023 09:41:21 Low back pain 233199396 M54.50 Paresthesi a of lower extremity 419296091 R20.2 Lumbar spondylosis 43467 0009 M47.896 M79.605 Health Concerns Section Related Observation LastModified by Organization Detai ls LastModified Time None Recorded Concern Status LastModified by Organization Details LastModified Time None Recorded Advance Directives Directive None Recorded Payers Encounter Date Sequence Insurance Name Policy Number Policy Hunt Covered Member ID Hunt Member ID Guarantor Name 12/14/2022 1 [employer] (POS) [id number] Emma Sommer [id number] Christadeliaer Kemal 03/20/2023 1 [employer] (POS) [id number] Emma Sommer [id number] Elierer Kemal 04/15/2023 1 [employer] (POS) [id number] Emma Sommer [id number] Navin Sommer 06/10/2023 1 [employer] (POS) [id number] Emma Sommer [id number] Navin Sommer Notes Date Note Type [...] details of Report MINDI LORA PA-C [address] [facility],[place] [address], [place], [address], [place] [facility], [facility] 12/14/2022 09:32:29 03/20/2023 text/html Assessment & [...] for scheduled follow-up. MINDI LORA PA-C [address] [facility],[place] [address], [place], [address], [place] [facility] 03/20/2023 15:35:00 06/10/2023 text/html Prior Visit [...] EMG report. The MRI was obtained at [facility] on May 20, 2009. Per report there is asymmetric transitional vertebra at the lumbosacral junction minor multilevel degenerative disc disease with small right lateral annular tear at L5 transitional vertebral level. EMG from [facility] on August 05, 2008 revealed left lateral [...] worse with prolonged standing. Treatments today include oaao-zlz-ivzuaxo medication, activity modification, thermal modalities. Plan: 63-year-old [...] DMITRIY JALLOH PA-C [address], [place], [address], [place] [facility], [facility] 06/10/2023 09:42:04
[2024-10-01 08:48] VITALS: BMI 30.1
== END 2024-10-01 09:04 | disposition home or self-care (01) ==
PROVIDERS: PCP Internal Medicine; Visit Provider Orthopaedic Surgery
DX: M17.12 Unilateral primary osteoarthritis, left knee (principal)
CPT/HCPCS: 20610

== ENCOUNTER → 2024-10-01 08:42 | Outpatient (BNVA) | payer OTHER, SELFPAY | PROVIDERS: PCP Internal Medicine; Visit Provider Orthopaedic Surgery | DX: M17.12 Unilateral primary osteoarthritis, left knee (principal) | CPT/HCPCS: 20610; J2003; J7323 ==

== ENCOUNTER 2025-01-13 08:36 | Outpatient (AMB) | payer MEDICARE, SELFPAY ==
[2025-01-13 08:38] VITALS: BMI 30.1
--- NOTE | 2025-01-13 08:38 | MHC.OFFVIS ---
Vital Signs 01/13/25 08:38 Height 5 ft 10 in Weight 210 lb BMI 30.1 Intake Visit Reasons: OV- Left Knee pain Intake Note: Navin is a 65 year old male who presents with complaints of left knee pain. The patient describes his pain as sharp in nature. He has had cortisone injections in the past which gave him minimal relief. He has also had Euflexxa viscosupplementation injections which gave him good relief. Has failed the last 3 months of conservative treatment which has included Tylenol, anti-inflammatory medicines, physical therapy exercises and a home exercise program. At this point his left knee pain is interfering with his activities of daily living and his ability to sleep well through the night. He wishes to hold off on surgery if at all possible. Allergies morphine [MORPHINE] Allergy (Unknown, Unverified 01/13/25 08:47) UNKNOWN Medication List - Last Reconciled 01/13/25 by Andrew Cochran MD aspirin 81 mg PO DAILY atorvastatin 40 mg PO DAILY fenofibrate micronized 200 mg PO DAILY omeprazole 20 mg PO QAM tamsulosin 0.4 mg PO BID PFSH Medical History (Updated 09/03/24 @ 07:31 by Andrew Cochran MD) BPH (benign prostatic hyperplasia) Pancreatitis Hyperlipidemia Hiatal hernia GERD (gastroesophageal reflux disease) Tubular adenoma of colon Surgical History (Updated 11/11/23 @ 09:54 by Marleny Lester RN) Hx of knee surgery Hx of colectomy Hx of carpal tunnel repair History of surgery on wrist Hx of hernia repair History of esophagogastroduodenoscopy (EGD) H/O colonoscopy Physical Exam Vital Signs: BMI result Body Mass Index 30.1 Const Other: Well-nourished well-developed very friendly male awake alert and oriented x3 in no acute distress Extrem Other: Left knee examination shows a minimal effusion, palpable crepitus with range of motion, pain with range of motion, no instability Results Reviewed Results Reviewed: X-rays of the patient's left knee show joint space narrowing, subchondral sclerosis, no acute bony abnormalities Assessment & Plan Assessment & Plan (1) Osteoarthritis of left knee: Code(s): M17.12 - Unilateral primary osteoarthritis, left knee Category: Medical Plan Mr. Sommer presents with progressively worsening left knee pain due to osteoarthritis. I had a lengthy discussion patient regarding the treatment options. He wishes to hold off on surgery for as long as possible. I agree with this plan. I will see whether or not the patient's insurance company will cover a another series of 3 Euflexxa viscosupplementation injections. I will see him back once the injections have been approved. Feel free to call me at any time should questions regarding his orthopedic management arise. I spent 20 minutes in reviewing the patient's records and imaging studies, seeing the patient and documenting in the medical record. Coding Level of Care Code Est Pt Level 3 (43197) Complex EM visit Add On G2211 Diagnoses Osteoarthritis of left knee M17.12
--- OUTSIDE RECORDS SUMMARY | 2025-01-13 08:55 | XMS_ITS | Clinical Summary ---
Author Organization [facility] [address] [facility] Address [address] [place] [address] Phone Care Team Providers Care Silver Miner Name Role Phone Vladimir Saeed MD Primary Care Provider [phone] Allergies No known active allergies Medications atorvastatin (LIPITOR) 40 mg tablet Take 1 tablet (40 mg total) by mouth at bedtime. Active fenofibrate (LOFIBRA) 160 mg tablet Take 1 tablet (160 mg total) by mouth 1 (one) time each day. Active omeprazole (PriLOSEC) [address] capsule Take 1 capsule (20 mg total) by mouth 1 (one) time each day. Do not crush or chew. Active tamsulosin (FLOMAX) 0.4 mg 24 hr capsule Take 1 capsule (0.4 mg total) by mouth 2 (two) times a day. Capsules should be taken 30 minutes following the same meal each day. Active oxyCODONE (ROXICODONE) 5 mg immediate release tablet Take 1 tablet (5 mg total) by mouth every 4 (four) hours if needed for moderate pain. Max Daily Amount: 30 mg 15 tablet 5 Active amoxicillin-cla vulanate (AUGMENTIN) 875-125 mg per tablet Take 1 tablet by mouth 2 (two) times a day. 21 each 5 Active acetaminophen (TYLENOL) 500 mg tablet Take 2 tablets (1,000 mg total) by mouth every 8 (eight) hours for 10 days. 30 tablet 5 12/19/19 25 docusate sodium (COLACE) 100 mg capsule Take 1 capsule (100 mg total) by mouth 2 (two) times a day for 10 days. 20 each 12/19/19 25 Active Problems Problem Noted Date Diagnosed Date Acute cholecystitis 12/05/2024 Encounters Date Type Department Care Team Description 12/18/2024 9:30 AM EDT Office Visit Bariatric Surgery - [place] [address] [place] [address] Leigh Willis MD Status post laparoscopic cholecystectomy (Primary Dx) 12/05/2024 1:00 PM EST - 12/05/2024 2:50 PM EST Surgery [facility] Main OR [address] [place] [address] Leigh Willis MD CHOLECYSTECTOMY CHOLANGIOGRAM LAPAROSCOPIC 12/05/2024 12:56 PM EST Anesthesia Event [facility] OR [address] [place] [address] Lefty Owen MD 12/04/2024 3:41 PM EST - 12/08/2024 2:29 PM EDT Hospital Encounter [facility] Urology Unit [address] [place] [address] Magdalena Kwon MD Ogrodnik, Aleksandra P, MD Acute cholecystitis (Primary Dx) Discharge Disposition: Home or Self Care from Last 3 Months Surgical History Surgery Date Site/Laterality Comments CARPAL TUNNEL RELEASE PROCEDURE: HISTORICAL CARPAL TUNNEL REL COLONOSCOPY PROCEDURE: HISTORICAL COLONOSCOPY OTHER SURGICAL HISTORY PROCEDURE: IA COLECTOMY PARTIAL W/ANASTOMOSIS; COMMENT: Historical Medical History Medical History Date Comments Other and unspecified hyperlipidemia DX:Other and unspecified hyperlipidemia Esophageal reflux DX:Esophageal reflux Family History Medical History Relation Name Comments Heart attack Father Relation Name Status Comments Father Alive Mother Alive Social History Tobacco Use Types Packs/Day Years Used Date Smoking Tobacco: Former Smokeless Tobacco: Never Alcohol Use Standard Drinks/Week Comments Yes 1 (1 standard drink = 0.6 oz pur e alcohol) Housing Instability Answer Date Recorde d Are you worried that in the next 2 months you may not have stable housing? Patient declined 12/05/2024 Food Access & Nutrition Answer Date Rec orded Do you have access to a vari ety of food including fruits and vegetables? Patient declined 12/05/2024 Access to Healthcare Answer Date Record ed Within the last 3 months, ho w many times did you visit the emergency department for your medical care? 1 12/05/2024 Health Literacy Answer Date Recorded How often do you need to hav e someone help you when you read instructions, pamphlets, or other written material from your doctor or pharmacy? Patient declined 12/05/2024 Caregiver: How often do you need to have someone help you when you read instructions, pamphlets, or other written material from your doctor or pharmacy? Not on file 025 Financial Risk Answer Date Recorded How hard is it for you to pa y for the very basics like food, housing, medical care, and air conditioning / heating? Patient declined 12/05/2024 Transportation Answer Date Recorded Has the lack of transportati on kept you from meetings, work, or from getting things needed for daily living? Patient declined 12/05/2024 Has the lack of transportati on kept you from medical appointments or from getting medications? Patient declined 12/05/2024 Social Isolation Answer Date Recorded How often do you feel lonely or isolated from those around you? Patient declined 12/05/2024 Food Risk Answer Date Recorded Within the past 12 months we worried whether our food would run out before we got money to buy more. Patient declined 025 Within the past 12 months th e food we bought just didn't last and we didn't have money to get more. Patient declined 04/2025 Dependent Care Answer Date Recorded Do you need help finding or paying for care for your loved ones. For example, early childhood lead teacher or elderly care for an older adult? Patient declined 12/05/2024 Education Answer Date Recorded Do you think completing more education or training, like finishing a GED, going to college, or learning a trade, would be helpful for you? Patient declined 12/05/2024 Employment and Income Answer Date Recor ded During the last four weeks, have you been actively looking for work? Patient declined 12/05/2024 Living Situation Answer Date Recorded What is your living situation? 0 12/05/2024 Interpersonal Safety Answer Date Record ed Physical Abuse 12/05/2024 Verbal Abuse 12/05/2024 Sex and Gender Information Value Date Recorded Sex Assigned at Male 12/04/2024 6:30 PM EST Legal Sex Male 2:24 AM EST Gender Identity Male 12/04/2024 6:30 PM EST Sexual Orientation Choose not to disclose 2024 6:30 PM EST Obstetrics History Last Filed Vital Signs Vital Sign Reading Time Taken Comments Blood Pressure 128/84 12/18/2024 9:24 AM EDT Pulse 90 12/18/2024 9:24 AM EDT Temperature 36.5 ??C (97.7 ??F) 12/18/2024 9:24 AM ED T Respiratory Rate 18 12/08/2024 7:50 AM EDT Oxygen Saturation 98% 12/08/2024 7:50 AM EDT Inhaled Oxygen Concentration - - Weight 91.6 kg (202 lb) 12/18/2024 9:24 AM EDT Height 177.8 cm (5' 10 ) 12/18/2024 9:24 AM EDT Body Mass Index 28.98 12/18/2024 9:24 AM EDT Plan of Treatment Health Maintenance Due Date Last Done Comments DTaP,Tdap,and Td Vaccines (1 - Tdap) 01/02/1979 Pneumococcal Vaccine: 50+ Years (1 of 1 - PCV) 01/02/2010 Zoster Vaccines (1 of 2) 01/02/2010 Abdominal Aortic Aneurysm (AAA) Screen 10/31/2019 Cholesterol Screening (Lipid Panel) 10/31/2019 Colorectal Cancer Screening: Colonoscopy 10/31/2019 Depression Screening 10/31/2019 COVID-19 Vaccine (1 - 2023-2 5 season) 2024 Social Influencers of Health Screening 12/05/2025 12/05/2024 Falls Risk Assessment 12/08/2025 12/08/2024 RSV Immunization Adult Patients (1 - 1-dose 75+ series) 01/02/2035 Influenza Vaccine Completed 07/17/2024, 10/20/2018 Hepatitis C Screening Completed 12/05/2024 HIB Vaccines Aged Out No longer eligi ble based on patient's age to complete this topic HPV Vaccines Aged Out No longer eligi ble based on patient's age to complete this topic Hepatitis A Vaccines Aged Out No long er eligible based on patient's age to complete this topic Hepatitis B Vaccines Aged Out No long er eligible based on patient's age to complete this topic IPV Vaccines Aged Out No longer eligi ble based on patient's age to complete this topic MMR Vaccines Aged Out No longer eligi ble based on patient's age to complete this topic Meningococcal ACWY Vaccine Aged Out N o longer eligible based on patient's age to complete this topic Meningococcal B Vaccine Aged Out No l onger eligible based on patient's age to complete this topic Pneumococcal Vaccine: Pediatrics (0 to 5 Years) and At-Risk Patients (6 to 64 Years) Aged Out No longer eligible b ased on patient's age to complete this topic RSV Immunization Patients Under 20 months Aged Out No longer eligible b ased on patient's age to complete this topic Varicella Vaccines Aged Out No longer eligible based on patient's age to complete this topic Procedures Procedure Name Priority Date/Time Associated Diagnosis Comments ECG ANNOTATED 12/09/2024 CBC WITH AUTO DIFFERENTIAL Routine 12/08/2024 5:53 AM EDT CBC AND DIFFERENTIAL Routine 12/08/2024 5:53 AM EDT COMPREHENSIVE METABOLIC PANEL Routine 12/08/2024 5:53 AM EDT PHOSPHORUS Routine 12/08/2024 5:53 AM EDT MAGNESIUM Routine 12/08/2024 5:53 AM EDT CBC WITH AUTO DIFFERENTIAL Routine 12/07/2024 5:47 AM EDT HEPATIC FUNCTION PANEL Routine 5:47 AM EDT CBC AND DIFFERENTIAL Routine 12/07/2024 5:47 AM EDT BASIC METABOLIC PANEL Routine 12/07/2024 5:47 AM EDT CBC WITH AUTO DIFFERENTIAL Routine 12/06/2024 7:05 AM EDT HEPATIC FUNCTION PANEL Routine 7:05 AM EDT PHOSPHORUS Routine 12/06/2024 7:05 AM EDT MAGNESIUM Routine 12/06/2024 7:05 AM EDT CBC AND DIFFERENTIAL Routine 12/06/2024 7:05 AM EDT BASIC METABOLIC PANEL Routine 12/06/2024 7:05 AM EDT CULTURE BLOOD Routine 12/06/2024 7:05 AM EDT POCT GLUCOSE BLOOD Routine 12/05/2024 8: 11 PM EST XR CHOLANGIOGRAM INTRAOPERATIVE Routine 12/05/2024 2:00 PM EST TISSUE EXAM Routine 12/05/2024 1:47 PM EST Acute cholecystitis TH AN ENDOTRACHEAL(NO CHARGE) Routine 12/05/2024 1:12 PM EST CHOLECYSTECTOMY CHOLANGIOGRAM LAPAROSCOPIC 12/05/2024 12:56 PM EST Acute cholecystitis MR ABDOMEN WO CONTRAST MRCP STAT 12/05/2024 8:24 AM EST HEPATITIS PANEL, ACUTE WITH REFLEX TO CONFIRMATION Add-On 12/05/2024 7:28 AM EST RBC MORPHOLOGY REVIEW STAT 12/05/2024 7:28 AM EST CBC WITH AUTO DIFFERENTIAL STAT 12/05/2024 7:28 AM EST LIPASE STAT 12/05/2024 7:28 AM EST CBC AND DIFFERENTIAL STAT 12/05/2024 7:28 AM EST HEPATIC FUNCTION PANEL STAT 7:[address] ABDOMEN PELVIS W CONTRAST STAT 12/05/2024 12:23 AM EST LACTATE, WITH REFLEX STAT 12/04/2024 10:54 PM EST BLOOD CULTURE PATHOGENS BY PCR Routine 12/04/2024 10:54 PM EST CULTURE BLOOD STAT 12/04/2024 10:54 PM EST CULTURE BLOOD STAT 12/04/2024 10:54 PM EST US ABDOMEN LIMITED STAT 12/04/2024 8: 12 PM EST CBC WITH AUTO DIFFERENTIAL STAT 12/04/2024 3:58 PM EST LIPASE STAT 12/04/2024 3:58 PM EST COMPREHENSIVE METABOLIC PANEL STAT 12/04/2024 3:58 PM EST CBC AND DIFFERENTIAL STAT 12/04/2024 3:58 PM EST ECG 12-LEAD STAT 12/04/2024 2:36 PM EST from Last 3 Months Results * ECG-Annotated (12/09/2024) us Provider Onbase MD ECG ORDERABLES Final Result * (ABNORMAL) CBC auto differential (12/08/2024 5:53 AM EDT) Only the most recent of5 resultswithin the time period is included. WBC 3.5(L) 4.8 - 10.8 K/mcL LAB HEMETOLOGY METHOD 12/08/2024 6:56 AM EDT [facility] RBC 3.70(L) 4.50 - 5.50 M/mcL LAB HEMETOLOGY METHOD 12/08/2024 6:56 AM EDT [facility] Hemoglobin 11.2(L) 13.5 - 17.5 g/dL LAB HEMETOLOGY METHOD 12/08/2024 6:56 AM EDT [facility] Hematocrit 32.0(L) 42.0 - 54.0 % LAB HEMETOLOGY METHOD 12/08/2024 6:56 AM EDT [facility] MCV 87.4 79.0 - 98.0 FL LAB [facility] MCH 30.6 27.0 - 32.0 pcg LAB HEMETOLOGY METHOD [facility] MCHC 35.0 32.0 - 37.0 g/dL LAB HEMETOLOGY METHOD 12/08/2024 6:56 AM EDT [facility] RDW 12.6 11.0 - 15.0 % LAB HEMETOLOGY METHOD 12/08/2024 6:56 AM [facility] Platelets 132 130 - 400 K/mcL LAB HEMETOLOGY METHOD 12/08/2024 6:56 AM [facility] MPV 10.2 7.0 - 11.0 FL LAB HEMETOLOGY METHOD 12/[facility]24 6[facility] NRBC 0.0 <1.0 % LAB HEMETOLOGY METHOD 12/08/2024 6:56 AM [facility] NRBC Absolute 0.00 <0.10 K/mcL LAB HEMETOLOGY METHOD 12/08/2024 6:56 AM [facility] Neutrophils Relative 59.1 % LAB HEMETOLOGY METHOD 12/08/2024 6:56 AM [facility] Lymphocytes Relative 23.6 % LAB HEMETOLOGY METHOD 12/08/2024 6:56 AM [facility] Monocytes Relative 13.9 % LAB HEMETOLOGY METHOD 12/08/2024 6:56 AM [facility] Eosinophils Relative 2.8 % LAB HEMETOLOGY METHOD 12/08/2024 6:56 AM [facility] Basophils Relative 0.3 % LAB HEMETOLOGY METHOD 12/08/2024 6:56 AM EDT [facility] Immature Granulocytes Relative 0.3 % LAB HEMETOLOGY METHOD 12/08/2024 6:56 AM EDT [facility] Neutrophils Absolute 2.08 1.50 - 7.00 K/mcL LAB HEMETOLOGY METHOD 12/08/2024 6:56 AM EDT [facility] Lymphocytes Absolute 0.83(L) 1.00 - 5.00 K/mcL LAB HEMETOLOGY METHOD 12/08/2024 6:56 AM EDT [facility] Monocytes Absolute 0.49 0.20 - 1.00 K/mcL LAB HEMETOLOGY METHOD 12/08/2024 6:56 AM EDT [facility] Eosinophils Absolute 0.10 0.00 - 0.50 K/mcL LAB HEMETOLOGY METHOD 12/08/2024 6:56 AM EDT [facility] Basophils Absolute 0.01 0.00 - 0.20 K/mcL LAB HEMETOLOGY METHOD 12/08/2024 6:56 AM EDT [facility] Immature Granulocytes Absolute 0.01 0.00 - 0.03 K/mcL LAB HEMETOLOGY METHOD 12/08/2024 6:56 AM EDT [facility] Blood Venous blood specimen / Unknown Venipuncture / Unknown 12/08/2024 5:53 AM EDT 12/08/2024 6:27 AM EDT us Tia MORTON LAB BLOOD ORDERABLES Final Resu lt [facility] [address] [place] [address], * (ABNORMAL) Phosphorus (12/08/2024 5:53 AM EDT) Only the most recent of2 resultswithin the time period is included. Phosphorus 2.3(L) 2.5 - 4.5 mg/dL LAB CHEMISTRY METHOD 12/08/2024 7:22 AM EDT [facility] Blood Venous blood specimen / Unknown Venipuncture / Unknown 12/08/2024 5:53 AM EDT 12/08/2024 6:26 AM EDT Tia MORTON LAB BLOOD ORDERABLES Final Resu lt Performing Organization Address City/[facility]/ZIP Co de Phone Number [facility] [address] [place] [address], [place] [phone] * Magnesium (12/08/2024 5:53 AM EDT) Only the most recent of2 resultswithin the time period is included. Magnesium 1.9 1.9 - 2.6 mg/dL LAB CHEMISTRY METHOD 12/08/2024 7:22 AM EDT [facility] Blood Venous blood specimen / Unknown Venipuncture / Unknown 12/08/2024 5:53 AM EDT 12/08/2024 6:26 AM EDT Tia MORTON LAB BLOOD ORDERABLES Final Resu lt Performing Organization Address [facility] de Phone Number [facility] [address] [place] [address], [place] [phone] * (ABNORMAL) Comprehensive metabolic panel (12/08/2024 5:53 AM EDT) Only the most recent of2 resultswithin the time period is included. Sodium 138 133 - 145 mmol/L LAB CHEMISTRY METHOD 12/08/2024 7:22 AM EDT [facility] Potassium 3.8 3.5 - 5.5 mmol/L LAB CHEMISTRY METHOD 12/08/2024 7:22 AM EDT [facility] Chloride 107 96 - 110 mmol/L LAB CHEMISTRY METHOD [facility]24 [facility] CO2 24 21 - 32 mmol/L LAB CHEMISTRY METHOD 12/08/2024 7:22 AM [facility] Anion Gap 7 3 - 11 LAB CHEMISTRY METHOD 12/08/2024 7:22 AM [facility] Glucose 125(H) 70 - 100 mg/dL LAB CHEMISTRY METHOD 12/08/2024 7:22 AM [facility] BUN 9 5 - 25 mg/dL LAB CHEMISTRY METHOD 12/08/2024 7:22 AM [facility] Creatinine 0.84 0.70 - 1.30 mg/dL LAB CHEMISTRY METHOD 12/08/2024 7:22 AM [facility] eGFR 97 >=60 mL/min/1. 73m2 LAB CHEMISTRY METHOD 12/08/2024 7:22 AM [facility] Comment:Calculation based on the??Chronic Kidney Disease Epidemiology Collaboration (CKD-EPI) equation refit??without adjustment for race. BUN/Creatinine Ratio 10.7 LAB CHEMISTRY METHOD 12/08/2024 7:22 AM [facility] Calcium 9.1 8.5 - 10.5 mg/dL LAB CHEMISTRY METHOD 12/08/2024 7:22 AM [facility] AST (SGOT) 53(H) 10 - 42 unit/L LAB CHEMISTRY METHOD 12/08/2024 7:22 AM [facility] ALT (SGPT) 116(H) 10 - 60 unit/L LAB CHEMISTRY METHOD 12/08/2024 7:22 AM [facility] Alkaline Phosphatase 79 42 - 121 unit/L LAB CHEMISTRY METHOD 12/08/2024 7:22 AM [facility] Total Protein 6.4 6.0 - 8.0 g/dL LAB CHEMISTRY METHOD 12/08/2024 7:22 AM [facility] Albumin 3.0(L) 3.2 - 5.0 g/dL LAB CHEMISTRY METHOD 12/08/2024 7:22 AM [facility] Total Bilirubin 1.6(H) 0.0 - 1.4 mg/dL LAB CHEMISTRY METHOD 12/08/2024 7:22 AM [facility] Blood Venous blood specimen / Unknown Venipuncture / Unknown 12/08/2024 5:53 AM EDT 12/08/2024 6:26 AM EDT us Tia MORTON LAB BLOOD ORDERABLES Final Resu lt [facility] [address] [place] [address], [place] [phone] * (ABNORMAL) Hepatic function panel (12/07/2024 5:47 AM EDT) Only the most recent of3 resultswithin the time period is included. Total Protein 6.3 6.0 - 8.0 g/dL LAB CHEMISTRY METHOD 12/07/2024 7:02 AM [facility] Albumin 3.1(L) 3.2 - 5.0 g/dL LAB CHEMISTRY METHOD 12/07/2024 7:02 AM [facility] Total Bilirubin 2.3(H) 0.0 - 1.4 mg/dL LAB CHEMISTRY METHOD 12/07/2024 7:02 AM [facility] Bilirubin, Direct 1.6(H) 0.0 - 0.3 mg/dL LAB CHEMISTRY METHOD 12/07/2024 7:02 AM [facility] Bilirubin, Indirect 0.7 0.0 - 1.1 mg/dL LAB CHEMISTRY METHOD 12/07/2024 7:02 AM [facility] ALT (SGPT) 145(H) 10 - 60 unit/L LAB CHEMISTRY METHOD 12/07/2024 7:02 AM [facility] AST (SGOT) 57(H) 10 - 42 unit/L LAB CHEMISTRY METHOD 12/07/2024 7:02 AM [facility] Alkaline Phosphatase 67 42 - 121 unit/L LAB CHEMISTRY METHOD 12/07/2024 7:02 AM [facility] Blood Venous blood specimen / Unknown Venipuncture / Unknown 12/07/2024 5:47 AM EDT 12/07/2024 6:15 AM EDT Theresa MORTON LAB BLOOD ORDERABLES Final Re sult [facility] [address] [place] [address], [place] [phone] * (ABNORMAL) Basic metabolic panel (12/07/2024 5:47 AM EDT) Only the most recent of2 resultswithin the time period is included. Sodium 136 133 - 145 mmol/L LAB CHEMISTRY METHOD 12/07/2024 7:02 AM [facility] Potassium 3.5 3.5 - 5.5 mmol/L LAB CHEMISTRY METHOD 12/07/2024 7:02 AM [facility] Chloride 105 96 - 110 mmol/L LAB CHEMISTRY METHOD 12/07/2024 7:02 AM [facility] CO2 26 21 - 32 mmol/L LAB CHEMISTRY METHOD 12/07/2024 7:02 AM [facility] Anion Gap 5 3 - 11 LAB CHEMISTRY METHOD 12/07/2024 7:02 AM [facility] Glucose 115(H) 70 - 100 mg/dL LAB CHEMISTRY METHOD 12/07/2024 7:02 AM [facility] BUN 11 5 - 25 mg/dL LAB CHEMISTRY METHOD 12/07/2024 7:02 AM [facility] Creatinine 1.18 0.70 - 1.30 mg/dL LAB CHEMISTRY METHOD 12/07/2024 7:02 AM EDT [facility] eGFR 69 >=60 mL/min/1. 73m2 LAB CHEMISTRY METHOD 12/07/2024 7:02 AM EDT [facility] Comment:Calculation based on the??Chronic Kidney Disease Epidemiology Collaboration (CKD-EPI) equation refit??without adjustment for race. BUN/Creatinine Ratio 9.3 LAB CHEMISTRY METHOD 12/07/2024 7:02 AM EDT [facility] Calcium 8.8 8.5 - 10.5 mg/dL LAB CHEMISTRY METHOD 12/07/2024 7:02 AM EDT [facility] Blood Venous blood specimen / Unknown Venipuncture / Unknown 12/07/2024 5:47 AM EDT 12/07/2024 6:15 AM EDT Dread MORTON LAB BLOOD ORDERABLES Final Re sult Performing Organization Address City/[facility]/ZIP Co de Phone Number [facility] [address] [place] [address], [place] [phone] * Culture blood (12/06/2024 7:05 AM EDT) Only the most recent of3 resultswithin the time period is included. Culture, Blood No growth at 5 days 12/11/2024 8:01 AM EDT [facility] Blood Venous blood specimen / Unknown Venipuncture / Unknown 12/06/2024 7:05 AM EDT 12/06/2024 7:31 AM EDT Janis MORTON LAB MICROBIOLOGY - GENERAL O RDERABLES Final Result [facility] [address] [place] [address], [place] [phone] * (ABNORMAL) POCT Glucose, blood (12/05/2024 8:11 PM EST) Glucose POCT 160(H) 70 - 100 mg/dL 12/05/2024 8:12 PM EST [facility] Blood Capillary blood specimen / Unknown 12/05/2024 8:11 PM EST 12/05/2024 8:13 PM EST us Leigh Willis MD LAB POINT OF CA RE TEST DOCKED DEVICE UNSOLICITED RESULTS Final Result [facility] [address] [place] [address], [place] [phone] * XR Cholangiogram Intraoperative (12/05/2024 2:00 PM EST) Anatomical Region Laterality Modality Body Radio Fluoroscop y 12/05/2024 5:42 PM EST Impressions 12/05/2024 5:45 PM EST Imaging assistance provided during an intraoperative cholangiogram. -------- FINAL REPORT -------- Dictated By: Steve Cross Dictated Date: 12/05/2024 17:42 ET Assigned Physician: Steve Cross Reviewed and Electronically Signed By: Steve Cross Signed Date: 12/05/2024 17:45 ET Workstation ID: [id number] Transcribed By: Self Edit Transcribed Date: 12/05/2024 17:42 ET Narrative 12/05/2024 5:45 PM EST EXAMINATION: Imaging assistance provided during a procedure CLINICAL INFORMATION: Intraoperative cholangiogram COMPARISON: None. TECHNIQUE: Imaging assistance was provided during an intraoperative cholangiogram. No interpretation was requested at the time the exam. Total dose area product: 1.5264 Gycm2 Fluoroscopy time: 21.6 seconds FINDINGS: Images are not labeled left or right. Instruments are present. Catheter access to the biliary tree. Contrast opacifies some of the extrahepatic biliary tree. There are round lucencies and some serpiginous lucencies. Contrast opacifies portions of the small bowel Further injections demonstrates cystic duct and common duct. No persistent filling defect demonstrated. Procedure Note Steve Cross MD - 12/05/2024 EXAMINATION: Imaging assistance provided during a procedure CLINICAL INFORMATION: Intraoperative cholangiogram COMPARISON: None. TECHNIQUE: Imaging assistance was provided during an intraoperative cholangiogram. Nointerpretation was requested at the time the exam. Total dose area product: 1.5264 Gycm2 Fluoroscopy time: 21.6 seconds FINDINGS: Images are not labeled left or right. Instruments are present. Catheter access to the biliary tree. Contrast opacifies some of theextrahepatic biliary tree. There are round lucencies and some serpiginouslucencies. Contrast opacifies portions of the small bowel Further injections demonstrates cystic duct and common duct. No persistentfilling defect demonstrated. IMPRESSION: Imaging assistance provided during an intraoperative cholangiogram. -------- FINAL REPORT -------- Dictated By: Steve Cross Dictated Date: 12/05/2024 17:42 ET Assigned Physician: Steve Cross Reviewed and Electronically Signed By: Steve Cross Signed Date: 12/05/2024 17:45 ET Workstation ID: [id number] Transcribed By: Self Edit Transcribed Date: 12/05/2024 17:42 ET us Leigh Willis MD IMG FLUOROSCOPY PROCEDU RES Final Result * Tissue exam (12/05/2024 1:47 PM EST) Final Diagnosis A. Gallbladder, cholecystectomy: - Acute cholecystitis and cholelithiasis. 12/08/2024 12:26 PM EDT [facility] Gross Description A. Gallbladder, : Labeled gallbladder . Received in formalin is a 9.4 x 4.1 x 1.9 cm previously disrupted gallbladder, including attached cystic duct with a diameter of 0.3 cm at the margin. No periductal lymph node is identified. The lumen contains scant yellow-brown bile and a 2.3 cm aggregate of irregular to friable brown-black choleliths and choleliths fragments ranging from minute to 0.4 cm in greatest dimension. The mucosa is adorno-brown and velvety. The wall (muscularis) thickness measures up to 0.2 cm. The serosa is inked marian, and the adventitial margin is inked green. Oven Dumper sections are submitted in one cassette including gallbladder (fundus, body and neck), duct margin (inked red), and cross section adjacent to duct margin (inked blue), five pieces. SHAHID 12/08/2024 12:26 PM EDT [facility] [facility] Dis[facility] Unless otherwise specified, all tissue is 10% NB formalin fixed and paraffin embedded. 12/08/2024 12:26 PM EDT [facility] Tissue Gallbladder structure / Unknown 12/05/2024 1:47 PM EST 12/07/2024 5:31 AM EDT us Leigh Willis MD LAB PATHOLOGY ORDERABLE S Final Result [facility] [address] [place] [address], * TH AN ENDOTRACHEAL(NO CHARGE) (12/05/2024 1:12 PM EST) Narrative Wil Boyle CRNA - 12/05/2024 1:12 PM EST Wil Boyle CRNA ? 12/05/2024 ??1:12 PM General Information and Staff Patient location during procedure: OR Performed: resident/KNIFE EDGER/CAA Performed by: Wil Boyle CRNA Authorized by: Lefty Owen MD ?? Intubation Airway not difficult Urgency: elective Final Airway Details Successful airway: ETT Cuffed: yes Successful intubation technique: direct laryngoscopy Facilitating devices/methods: intubating stylet Endotracheal tube insertion site: oral Blade: Harvinder Blade size: #3 ETT size (mm): 7.5 Cormack-Lehane Classification: grade IIa - partial view of glottis Placement verified by: chest auscultation and capnometry Measured from: lips ETT to lips (cm): 23 Number of attempts at approach: 1Final airway type: endotracheal airway Indications and Patient Condition Indications for airway management: anesthesia Spontaneous Ventilation: absent Sedation level: Yes Preoxygenated: yes Soft Tissue Damage: No Dentition Unchanged: Yes Patient position: sniffing MILS maintained throughout Mask difficulty assessment: 1 - vent by mask Start Time: 12/05/2024 1:03 PMStop Time: 12/05/2024 1:03 PM us Lefty Owen MD ANESTHESIA ORDERABLES Final R esult * MR Abdomen wo Contrast MRCP (12/05/2024 8:24 AM EST) Anatomical Region Laterality Modality Body Magnetic Resonan ce 12/05/2024 10:0 1 AM EST Impressions 12/05/2024 10:13 AM EST Abnormal gallbladder with layering small stones or debris. Marked gallbladder wall thickening. The extrahepatic bile duct is approximately 0.7 cm which is minimally increased. There is no definite choledocholithiasis demonstrated. No imaging evidence of complication from acute pancreatitis. ?? -------- FINAL REPORT -------- Dictated By: Steve Cross Dictated Date: 12/05/2024 10:01 ET Assigned Physician: Steve Cross Reviewed and Electronically Signed By: Steve Cross Signed Date: 12/05/2024 10:13 ET Workstation ID: [id number] Transcribed By: Self Edit Transcribed Date: 12/05/2024 10:01 ET Narrative 12/05/2024 10:13 AM EST EXAMINATION: MRI ABDOMEN WITHOUT IV CONTRAST CLINICAL INFORMATION: Abdomen pain. ??Biliary obstruction suspected COMPARISON: Portions of a CT 12/05/2024 ?? TECHNIQUE: Anatomic and fluid sensitive MR sequences obtained on a high field platform were used to examine the abdomen. ?? MRCP was performed. No IV contrast was administered Amount of IV contrast: None Type of contrast: None Volume of contrast discarded: 0 mL FINDINGS: LIVER: The right lobe of the liver measures 22.3 cm. The liver contour appears smooth. The background hepatic signal appears homogeneous. No significant intrahepatic biliary dilation. No suspicious focal liver lesion. ?? BILIARY TRACT: ??The gallbladder is abnormal. There is layering debris or small calculi. The gallbladder wall is markedly thickened. No definite necrosis or localized pericholecystic collection. No sloughing the mucosa demonstrated. The common duct measures 0.7 cm. MRCP: ??The common duct measures 0.7 cm. There is no convincing choledocholithiasis. There is no pancreatic ductal dilation. No intrahepatic biliary dilation demonstrated. No focal stricture. SPLEEN: The spleen measures at least 12.9 cm which is approximately one standard deviation above the mean expected. No focal abnormality demonstrated ?? PANCREAS: There is no pancreatic ductal dilation. There is no pancreatic mass. There is no localized peripancreatic stranding or fluid ?? ADRENAL GLANDS: No suspicious abnormality. ?? KIDNEYS: The kidneys are normal in size, shape, and attenuation. No hydronephrosis, hydroureter, or calculi. ??Small cysts with no suspicious features. GASTROINTESTINAL TRACT: No definite bowel wall thickening demonstrated. ?? ABDOMINAL WALL: No significant hernia is appreciated. ?? LYMPHOVASCULAR STRUCTURES AND FLUID: No abdominal aortic aneurysm demonstrated. No measurably enlarged lymph nodes. No free fluid in the upper abdomen demonstrated ?? MUSCULOSKELETAL: No acute or suspicious osseous abnormality. ?? VISUALIZED LOWER CHEST: No suspicious abnormality demonstrated. ?? Procedure Note Steve Cross MD - 12/05/2024 EXAMINATION: MRI ABDOMEN WITHOUT IV CONTRAST CLINICAL INFORMATION: Abdomen pain. Biliary obstruction suspected COMPARISON: Portions of a CT 12/05/2024 TECHNIQUE: Anatomic and fluid sensitive MR sequences obtained on a high fieldplatform were used to examine the abdomen. MRCP was performed. No IV contrast was administered Amount of IV contrast: None Type of contrast: None Volume of contrast discarded: 0 mL FINDINGS: LIVER: The right lobe of the liver measures 22.3 cm. The liver contourappears smooth. The background hepatic signal appears homogeneous. Nosignificant intrahepatic biliary dilation. No suspicious focal liver lesion. BILIARY TRACT: The gallbladder is abnormal. There is layering debris orsmall calculi. The gallbladder wall is markedly thickened. No definite necrosis or localized pericholecystic collection. No sloughingthe mucosa demonstrated. The common duct measures 0.7 cm. MRCP: The common duct measures 0.7 cm. There is no convincingcholedocholithiasis. There is no pancreatic ductal dilation. Nointrahepatic biliary dilation demonstrated. No focal stricture. SPLEEN: The spleen measures at least 12.9 cm which is approximately onestandard deviation above the mean expected. No focal abnormalitydemonstrated PANCREAS: There is no pancreatic ductal dilation. There is no pancreaticmass. There is no localized peripancreatic stranding or fluid ADRENAL GLANDS: No suspicious abnormality. KIDNEYS: The kidneys are normal in size, shape, and attenuation. Nohydronephrosis, hydroureter, or calculi. Small cysts with no suspiciousfeatures. GASTROINTESTINAL TRACT: No definite bowel wall thickening demonstrated. ABDOMINAL WALL: No significant hernia is appreciated. LYMPHOVASCULAR STRUCTURES AND FLUID: No abdominal aortic aneurysmdemonstrated. No measurably enlarged lymph nodes. No free fluid in the upper abdomen demonstrated MUSCULOSKELETAL: No acute or suspicious osseous abnormality. VISUALIZED LOWER CHEST: No suspicious abnormality demonstrated. IMPRESSION: Abnormal gallbladder with layering small stones or debris. Markedgallbladder wall thickening. The extrahepatic bile duct is approximately 0.7 cm which is minimallyincreased. There is no definite choledocholithiasis demonstrated. No imaging evidence of complication from acute pancreatitis. -------- FINAL REPORT -------- Dictated By: Steve Cross Dictated Date: 12/05/2024 10:01 ET Assigned Physician: Steve Cross Reviewed and Electronically Signed By: Steve Cross Signed Date: 12/05/2024 10:13 ET Workstation ID: [id number] Transcribed By: Self Edit Transcribed Date: 12/05/2024 10:01 ET Miguel MORTON IMG MRI PROCEDURES Final Result * (ABNORMAL) RBC morphology review (12/05/2024 7:28 AM EST) Rbc Morphology See comment( A) Consistent with indices, Normal for LAB HEMETOLOGY METHOD 12/05/2024 8:39 AM EST [facility] Comment:RBC: Morphology agre es with CBC Platelet Morphology - WAM See Note(A) Normal LAB HEMETOLOGY METHOD 12/05/2024 8:39 AM EST [facility] Comment:PLT: Normal Blood Venous blood specimen / Unknown Venipuncture / Unknown 12/05/2024 7:28 AM EST 12/05/2024 7:33 AM EST Miguel MORTON LAB BLOOD ORDERABLES Mali l Result [facility] [address] [place] [address], [place] [phone] * Hepatitis panel, acute with reflex to confirmation (12/05/2024 7:28 AM EST) Pathologist [facility] [place] Hepatitis B Surface Ag Negative Negative LAB CHEMISTRY METHOD 12/05/2024 12:16 PM EST [facility] Hepatitis A Antibody IgM Negative Negative LAB CHEMISTRY METHOD 12/05/2024 12:16 PM EST [facility] Hep B Core IgM Negative Negative LAB CHEMISTRY METHOD 12/05/2024 12:16 PM EST [facility] Hepatitis C Antibody Negative Negative LAB CHEMISTRY METHOD 12/05/2024 12:16 PM [facility] Blood Venous blood specimen / Unknown Venipuncture / Unknown 12/05/2024 7:28 AM EST 12/05/2024 7:33 AM EST Theresa MORTON LAB BLOOD ORDERABLES Final Re sult Performing Organization Address [facility]/ZIP Co de Phone Number [facility] [address] [place] [address], [place] [phone] * Lipase (12/05/2024 7:28 AM EST) Only the most recent of2 resultswithin the time period is included. Pathologist [facility] [place] Lipase 44 13 - 75 unit/L LAB CHEMISTRY METHOD 12/05/2024 8:44 AM EST [facility] Blood Venous blood specimen / Unknown Venipuncture / Unknown 12/05/2024 7:28 AM EST 12/05/2024 7:33 AM EST Miguel MORTON LAB BLOOD ORDERABLES [place] l Result Performing Organization Address City/[facility]/ZIP Co de Phone Number [facility] [address] [place] [address], [place] [phone] * CT Abdomen Pelvis w Contrast (12/05/2024 12:23 AM EST) Anatomical Region Laterality Modality Body Computed Tomogra phy 12/05/2024 1:09 AM EST Impressions 12/05/2024 1:09 AM EST Impression: 1. No gallstones visualized by CT. Recent ultrasound had demonstrated multiple small layering stones. Abnormal gallbladder wall thickening is more pronounced on CT than it is on the recent ultrasound and is concerning for acute acalculous cholecystitis. Nuclear medicine HIDA scan could be considered for further evaluation. 2. No CT evidence for acute pancreatitis. 3. Hepatomegaly. 4. Colonic diverticulosis without diverticulitis. 5. Urinary bladder wall thickening may be due to underdistention or cystitis. Please correlate with urinalysis. Prostate gland is enlarged. This document has been electronically signed by: Lala Stanley MD on 12/05/2024 01:09:22 Narrative 12/05/2024 1:09 AM EST INDICATION: Abdominal pain, fever Exam: CT Abdomen and Pelvis with contrast Comparison: 12/04/2024 Clinical history: Abdominal pain, fever Findings: The liver, spleen and pancreas do not demonstrate any acute process. Hepatomegaly at 22 cm. No liver lesions. Spleen is upper limits of normal in size No gallstones visualized by CT. Recent ultrasound had demonstrated multiple small layering stones. Abnormal gallbladder wall thickening is more pronounced on CT than it is on the recent ultrasound and is concerning for acute acalculous cholecystitis. No choledocholithiasis or biliary obstruction. Normal adrenal glands. No renal calculi or hydronephrosis. No abdominal aortic aneurysm. No small bowel obstruction Appendix is normal in caliber Colonic diverticulosis without diverticulitis.. Urinary bladder wall thickening may be due to underdistention or cystitis. No bladder stones. Prostate gland is enlarged which may indicate prostate hypertrophy or prostate cancer No free fluid Procedure Note Lala Stanley MD - 12/05/2024 INDICATION: Abdominal pain, fever Exam: CT Abdomen and Pelvis with contrast Comparison: 12/04/2024 Clinical history: Abdominal pain, fever Findings: The liver, spleen and pancreas do not demonstrate any acute process. Hepatomegaly at 22 cm. No liver lesions. Spleen is upper limits of normal in size No gallstones visualized by CT. Recent ultrasound had demonstrated multiple small layering stones. Abnormal gallbladder wall thickening is more pronounced on CT than it is on the recent ultrasound and is concerning for acute acalculous cholecystitis. No choledocholithiasis or biliary obstruction. Normal adrenal glands. No renal calculi or hydronephrosis. No abdominal aortic aneurysm. No small bowel obstruction Appendix is normal in caliber Colonic diverticulosis without diverticulitis.. Urinary bladder wall thickening may be due to underdistention orcystitis. No bladder stones. Prostate gland is enlarged which may indicate prostate hypertrophy or prostate cancer No free fluid IMPRESSION: Impression: 1. No gallstones visualized by CT. Recent ultrasound had demonstrated multiple small layering stones. Abnormal gallbladder wall thickening is more pronounced on CT than it is on the recent ultrasound and is concerning for acute acalculous cholecystitis. Nuclear medicine HIDAscan could be considered for further evaluation. 2. No CT evidence for acute pancreatitis. 3. Hepatomegaly. 4. Colonic diverticulosis without diverticulitis. 5. Urinary bladder wall thickening may be due to underdistention or cystitis. Please correlate with urinalysis. Prostate gland is enlarged. This document has been electronically signed by: Lala Stanley MD on 12/05/2024 01:09:22 Magdalena Kwon MD IMG CT PROCEDURES Final Result * Lactate, with Reflex (12/04/2024 10:54 PM EST) LACTIC ACID 1.7 0.4 - 2.0 mmol/L LAB CHEMISTRY METHOD 12/04/2024 11:31 PM EST [facility] Blood Venous blood specimen / Unknown Venipuncture / Unknown 12/04/2024 10:54 PM EST 12/04/2024 11:05 PM EST Regino MORTON LAB BLOOD ORDERABLES Final Resul t [facility] [address] [place] [address], [place] [phone] * (ABNORMAL) Blood culture pathogens molecular study (12/04/2024 10:54 PM EST) Escherichia coli Detected (A) Not Detected LAB MICROBIOLOGY METHOD 12/05/2024 2:39 PM EST [facility] Blood Venous blood specimen / Unknown Venipuncture / Unknown 12/04/2024 10:54 PM EST 12/04/2024 11:04 PM EST us Regino MORTON LAB MICROBIOLOGY - GENERAL ORDER AGUSTÍN Final Result [facility] [address] [place] [address], [place] [phone] * US Abdomen Limited (12/04/2024 8:12 PM EST) Anatomical Region Laterality Modality Body Ultrasound 12/04/2024 8:41 PM EST Impressions 12/04/2024 8:41 PM EST Impression: Gallbladder sludge or layering small stones with gallbladder wall thickness upper limits normal, and no other sonographic evidence of cholecystitis. This document has been electronically signed by: Simone Fenton MD on 12/04/2024 20:41:32 Narrative 12/04/2024 8:41 PM EST INDICATION: pain US limited to right upper quadrant Comparison: None Findings: Liver is enlarged and reveals homogeneous echotexture. No focal hepatic lesions. No intrahepatic ductal dilatation. Right lobe length measures 19.8 cm. Portal vein reveals hepatopetal flow. Common bile duct measures 8 mm. Gallbladder reveals layering sludge or perhaps tiny layering nonshadowing stones. Gallbladder wall is within upper limits normal at 3 mm thickness. No pericholecystic fluid.. No sonographic Elizabeth's sign. Right kidney is normal texture. No hydronephrosis. Right renal length is 13.2 cm. Procedure Note Simone Fenton MD - 12/04/2024 INDICATION: pain US limited to right upper quadrant Comparison: None Findings: Liver is enlarged and reveals homogeneous echotexture. Nofocal hepatic lesions. No intrahepatic ductal dilatation. Right lobe length measures 19.8 cm. Portal vein reveals hepatopetal flow. Common bile duct measures 8 mm. Gallbladder reveals layering sludge or perhaps tiny layering nonshadowing stones. Gallbladder wall is within upper limits normal at 3 mm thickness. No pericholecystic fluid.. No sonographic Elizabeth's sign. Right kidney is normal texture. No hydronephrosis. Right renal length is 13.2 cm. IMPRESSION: Impression: Gallbladder sludge or layering small stones with gallbladder wall thickness upper limits normal, and no other sonographic evidence of cholecystitis. This document has been electronically signed by: Simone Fenton MD on 12/04/2024 20:41:32 us Gay Shaver DO IMG US PROCEDURES Final R esult * ECG 12 lead (12/04/2024 2:36 PM EST) Ventricular Rate ECG 52 BPM GEMUSE Atrial Rate 52 BPM GEMUSE P-R Interval 178 ms GEMUSE QRS Duration 88 ms GEMUSE Q-T Interval 444 ms GEMUSE QTc 412 ms GEMUSE P Wave [place] 3 degrees GEMUSE R [place] -4 degrees GEMUSE T [place] 26 degrees GEMUSE ECG Interpretation Sinus bradycardia Nonspecific T wave changes When compared with ECG of 05-JUL-2021 13:30, Criteria for Inferior infarct are no longer Present Confirmed by Hailee JAMES, [facility] ([id number]) on 12/04/2024 5:13:12 PM GEMUSE 12/04/2024 2:36 PM EST 12/04/2024 5:13 PM EST us Carlo Shah MD ECG ORDERABLES Final Result GEMUSE from Last 3 Months Insurance [facility] Care Teams Silver Miner Relationship Specialty Start Date End Date Vladimir Saeed MD [address] [place] [id number] PCP - General 05/13/09
--- OUTSIDE RECORDS SUMMARY | 2025-01-13 08:55 | XMS_ITS | Data Portability ---
Author Organization [place] [facility] Rakesh [place] AONE [place] Address [address] [place] [address] Care Team Providers Care Project Coach Name Role Phone TATUM HUNTER Primary Care Provider [phone] Assessment Encounter Date Assessment Date Assessment LastModified [...] findings at length with the patient today. ? ? ?We discussed the nature and etiology of this problem along with current treatment options. We discussed the expected course and outcomes and what to expect. We also discussed risks and benefits. ? ? ?All of their questions were answered today, and there was exhibited understanding and comprehension of all that was discussed. 10 minutes were spent reviewing previous imaging and charting. ? ? ?10 minutes were spent obtaining patient history. ? ? ?5 minutes were spent on physical exam. ? ? ?5? ? ?minutes were spent explaining diagnosis and assessment. Today's [...] findings at length with the patient today. ? ? ?We discussed the nature and etiology of this problem along with current treatment options. We discussed the expected course and outcomes and what to expect. We also discussed risks and benefits. ? ? ? All of their questions were answered today, and there was exhibited understanding and comprehension of all that was discussed. Time Spent: 10 minutes were spent reviewing previous imaging and charting. ? ? ?10 minutes were spent obtaining patient history. ? ? ?5 minutes were spent on physical exam. ? ? ?5? ? ?minutes were spent explaining diagnosis and assessment. Today's [...] EMG report. The MRI was obtained at [facility] on May 20, 2009. Per report there is asymmetric transitional vertebra at the lumbosacral junction minor multilevel degenerative disc disease with small right lateral annular tear at L5 transitional vertebral level. EMG from [facility] on August 05, 2008 revealed left [...] worse with prolonged standing. Treatments today include rtzz-ijf-udhvctr medication, activity modification, thermal modalities. Plan: 63-year-old [...] He will follow up in 4-6 weeks. Not available 04/15/2023 17:26:50 06/10/2023 06/10/2023 HPI Navin is a generally healthy 63-year-old male Who returns for continued management of his lumbar spine. He notes a remote back injury in 2007, He had an evaluation with MRI and nerve conduction test at that time. The MRI was obtained at [facility] on May 20, 2009. Per report there is asymmetric transitional vertebra at the lumbosacral junction minor multilevel degenerative disc disease with small right lateral annular tear at L5 transitional vertebral level. EMG from [facility] on August 05, 2008 revealed left [...] notes some swelling in his left knee [email or web address] Not available 06/10/2023 09:40:33 Plan of Treatment Reminders Order Date Submit Date Provider Last Modified By Organization Details Last Modified Time Details Appointments None recorded. Lab None recorded. Referral None recorded. Procedures None recorded. Surgeries None recorded. Imaging MRI, lumbar spine, w/o contrast - Radiating left leg pain and paresthesia s, completed physical therapy without relief. Please evaluate for left-sided neural compression . 2022 023 [email or web address] Not available 14:11:29 XR, lumbosacral spine, 2 or 3 view 2022 023 [facility], [address], [place] [address], [place], [address], 3 17:06:15 Medication Orders triamcinolo ne acetonide 40 mg/mL suspension for injection 2022 023 [email or web address] [id number], [address] [place], [address], 3 09:30:35 lidocaine HCl 10 mg/mL (1 %) injection solution 2022 023 [email or web address] [id number], [address] [place], [address], 3 09:30:35 Patient TargetsNo targets recorded. Patient InstructionsNo instructions recorded. Reason for Referral None Reported. Problems Name Problem SNOMED Code Status Onset Date Resolution Date Notes Provider Name and Address Organization Details Recorded Time Low back pain 081382838 Active 2022 DMITRIY JALLOH PA-C [address], [place], [address], [place] [facility] [place] 3 17:26:50 Paresthesia of lower extremity 554541745 Active 2022 DMITRIY JALLOH PA-C [address], [place], [address], [place] [facility] [place] 3 17:28:04 Lumbar spondylosis 991360290 Active 2022 DMITRIY JALLOH PA-C [address], [place], [address], [place] [facility] 3 17:28:05 Arthritis of left knee 1710112691980 104 Active 2022 MINDI LORA PA-C [address], [place], [address], [place] [facility] 3 09:28:04 Pain of left knee joint 8281952031162 07 Active 2022 MINDI LORA PA-C [address], [place], [address], [place] [facility] [place] 3 09:30:24 Problem Notes None recorded. Procedures Surgical History Date Name Laterality Status Provider Name and Address Organization Details Recorded Time 12/14/2022 Knee Joint/Burs a Asp & Inj completed MINDI LORA PA-C [address], [place], [address], [place] [facility] 12/14/2022 09:27:39 Imaging Results None recorded. [...] Updated DateTime 12/14/2022 177.8 cm 30.1 kg/m2 36670.4 g Noah Mcdaniels [place] - [facility] 12/14/2022 08:37:01 Date Recorded Body height Body mass index (BMI) Body weight Provider Name and Address Organization Details Last Updated DateTime 04/15/2023 172.72 cm 31.5 kg/m2 76175.62 g Fay Forbes [place] [facility] 04/15/2023 16:08:24 Date Recorded Body height Body mass index (BMI) Body weight Provider Name and Address Organization Details Last Updated DateTime 06/10/2023 175.26 cm 30.7 kg/m2 29212.21 g Estrella Moore [place] [facility] 06/10/2023 09:19:03 Social History Question Answer Notes LastModified by Organizat ion Details LastModified Time Tobacco Smoking Status Former Smoker Noah Barksdalecara arzola, [place] [facility] [place] 12/14/2022 08:38:20 What Is Your Level Of Alcohol Consumption? Heavy [email or web address] Information not available 12/14/2022 When Did You Quit Smoking? 11-15yearss incelastcig arette [email or web address] Information not available 12/14/2022 Do You Use Any Illicit Or Recreational Drugs? No [email or web address] Information not available 12/14/2022 How Many Years Have You Smoked Tobacco? 30 [email or web address] Information not available 12/14/2022 Do You Or Have You Ever Used Any Other Forms Of Tobacco Or Nicotine? No [email or web address] Information not available 12/14/2022 Sex: Unknown Functional Status None recorded. Mental Status None recorded. Family History Relationship Description Onset Age of this Age Resolved Age Notes LastModified by Organization Details LastModified Time Brother Arthritis [email or web address] Not kaykay ilable 12/14/2022 08:38:40 Brother Hyperlipidem ia [email or web address] Not available 08:38:57 Father Hyperlipidem ia [email or web address] Not available 08:38:57 Medical History Condition Response High Cholesterol Y Past Encounters Encounter ID Performer Location Encounter Start Date Encounter Closed Date Diagnosis/Indication Diagnosis SNOMED-CT Code Diagnosis ICD10 Code Diagnosis Note [id number] MD EDINSON Hagen [address] [place], [place] [address] [address] 12/14/2022 08:22:20 12/14/2022 09:13:20 Arthritis of left knee 5725632910 355508 M13.862 Pain of le ft knee joint 3416080986 50441 M25.562 [id number] MD EDINSON Ambrosio [address] [facility] [address] [facility] [place] [address] 03/20/2023 13:38:16 03/20/2023 14:12:54 Follow-up visit [id number] Z09 [id number] MD EDINSON Solorz[place] [address] [facility] [address] [place] [address] 04/15/2023 15:40:09 04/15/2023 16:51:16 Low back pain 543554460 M54.50 Paresthesi a of lower extremity 162651431 R20.2 Lumbar spondylosis 32817 0009 M47.896 [id number] MD EDINSON Solorzano [place] [address] [facility] [address] [place] [address] 06/10/2023 08:59:29 06/10/2023 09:41:21 Low back pain 456009871 M54.50 Paresthesi a of lower extremity 789827067 R20.2 Lumbar spondylosis 71191 0009 M47.896 M79.605 Health Concerns Section Related Observation LastModified by Organization Detai ls LastModified Time None Recorded Concern Status LastModified by Organization Details LastModified Time None Recorded Advance Directives Directive None Recorded Payers Encounter Date Sequence Insurance Name Policy Number Policy Hunt Covered Member ID Hunt Member ID Guarantor Name 12/14/2022 1 [employer] ([employer]) [id number] Emma Sommer [id number] Navin Sommer 03/20/2023 1 [employer] ([employer]) [id number] Emma Sommer [id number] Navin Sommer 04/15/2023 1 [employer] (POS) [id number] Emma Sommer [id number] Navin Sommer 06/10/2023 1 [employer] (POS) [id number] Emma Sommer [id number] Navin Sommer Notes Date Note Type [...] details of Report MINDI LORA PA-C [address] [facility] [address], [place], [address], [place] [facility] [place] 12/14/2022 09:32:29 03/20/2023 text/html Assessment & [...] in 3 months for repeat clinical exam. HPI:Xin 63-year-old male initially seen on 12/14/2022 for left knee pain due to osteoarthritis. Patient states notable improvement still has satisfactorily from his cortisone injection here for scheduled follow-up. MINDI LORA PA-C [address] [facility],[address], [place], [address], [place] [facility] [place] 03/20/2023 15:35:00 06/10/2023 text/html Prior Visit [...] EMG report. The MRI was obtained at [facility] on May 20, 2009. Per report there is asymmetric transitional vertebra at the lumbosacral junction minor multilevel degenerative disc disease with small right lateral annular tear at L5 transitional vertebral level. EMG from [facility] on August 05, 2008 revealed left [...] worse with prolonged standing. Treatments today include zkco-krk-xbcixex medication, activity modification, thermal modalities. Plan: 63-year-old [...] DMITRIY JALLOH PA-C [address], [place], [address], [place] [facility] 06/10/2023 09:42:04
--- OUTSIDE RECORDS SUMMARY | 2025-01-13 08:55 | XMS_ITS ---
Author Organization [facility] Address [address] [place] [address] Care Team Providers Care Box Sealing Inspector Name Role Phone Vladimir Saeed MD Primary Care Provider Unavailab Rashaad Foster [phone] REASON FOR VISIT screening,hx polyps Encounters Encounter Location Date Provider Diagnosis [facility] [address] [place] [id number] 11/13/2023 Rashaad Perez Plan Of Treatment No Information Progress Notes * RAFAELA COREADOB: (65 yo M)Acc No.[id number]:11/13/2023 COLON WITH MAC Patient:?ANMOL ALIRIO Michele Provider:?Rashaad Perez MD :1960???Age:63 Y???Sex:Male Fady e:11/13/2023 Address:[address] [place] [address] [place], [id number] Pcp:Vladimir Saeed MD Subjective: * Chief Complaints: * ???1. Screening,hx polyps. * Medical History:? Objective: * Vitals:? Assessment: Plan: * Treatment: * * The named appointment provid er may or may not be the originator of this progress note, and it is not deemed complete until electronically signed by the appointment provider. Sign off status: Pending * Provider:?Rashaad Perez MD Date:? 024 Generated for Printi ben/Fadixie/eTransmitting on:?01/13/2025 08:55 AM EDT
--- OUTSIDE RECORDS SUMMARY | 2025-01-13 08:55 | XMS_ITS ---
Author Organization [facility] Address [address] [place] [address] Care Team Providers Care Laborer General Name Role Phone Vladimir Saeed MD Primary Care Provider Unavailab Rashaad Foster [phone] REASON FOR VISIT screening,hx polyps Encounters Encounter Location Date Provider Diagnosis [facility] [address] [place] [id number] 09/11/2023 Rashaad Perez Plan Of Treatment No Information Progress Notes * RAFAELA COREADOB: (65 yo M)Acc No.[id number]:09/11/2023 COLON WITH MAC Patient:RHINAANMOL ALIRIO Neville Leny Provider:?Rashaad Perez MD :1960???Age:63 Y???Sex:Male Fady e:09/11/2023 Address:[address] [place] [address] [place] [place], [id number] Pcp:Vladimri Saeed MD Subjective: * Chief Complaints: * ???1. Screening,hx polyps. * Medical History:? Objective: * Vitals:? Assessment: Plan: * Treatment: * * The named appointment provid er may or may not be the originator of this progress note, and it is not deemed complete until electronically signed by the appointment provider. Sign off status: Pending * Provider:?Rashaad Perez MD Date:? 023 Generated for Printi ng/Faclariceg/eTransmitting on:?01/13/2025 08:54 AM EDT
--- OUTSIDE RECORDS SUMMARY | 2025-01-13 08:56 | XMS_ITS ---
Author Organization [facility] Address [address] [place] [address] Care Team Providers Care Wash And Greaser Name Role Phone Vladimir Saeed MD Primary Care Provider Unavailab Rashaad Foster [phone] REASON FOR VISIT cancel procedure Encounters Encounter Location Date Provider Diagnosis [facility] [address] [place] [address] 11/11/2023 Rashaad Perez Plan Of Treatment No Information Progress Notes * RAFAELA COREADOB: (63 yo M)Acc No.[id number]:11/11/2023 Patient:?ALIRIO COREA :1960???Age:63 Y???Sex:Male Address:[address] [place] [address] * true * Date:? Generated for Mariliai ben/Deyvi/eTransmitting on:?01/13/2025 08:55 AM EDT
--- OUTSIDE RECORDS SUMMARY | 2025-01-13 08:56 | XMS_ITS | Patient Health Record ---
Author Organization [facility] Address [address] [place] [address] Care Team Providers Care Merchandising Manager Name Role Phone Vladimir Saeed MD Primary Care Provider UnavailRashaad Goss Unavailable [phone] Allergies No Known Allergies Reason For Referral No Information Medications Medication SIG (Take, Route, Frequency, Duration) Notes [...] TWICE A DAY Oral for 90 Active Social History Alcohol Screen Question Answer Notes Did you [...] Never (0 point) Points 5 Interpretation Positive Section Notes: Nonsmoker since 06/2011; 2-3 good drinks per day Nonsmoker since 06/2011; 2-3 good drinks per day--- pt quit alcholol as of 01/18/2015. Nonsmoker since 06/2011; 2-3 good drinks per day--- pt quit alcholol as of 01/18/2015. Problems Problem Type SNOMED Code ICD Code Onset Dates Problem Status W/U Status Risk Notes Problem 893101001 Colon cancer screening (Z12.11) Active confirmed Problem 909323535 History of adenomatous polyp of colon (Z86.010) Active confirmed Problem 558988115 Gastroesophageal reflux disease without esophagitis (K21.9) Active confirmed Plan Of Treatment Future Test Test Name Order Date UPPER GI ENDOSCOPY 02/01/2015 COLONOSCOPY 06/18/2023 Insurance Providers Payer Name Payer Address Payer Phone Subscriber Number Group Number Insured Name Patient Relationship to Insured Coverage Start Date Coverage End Date [employer] [address] [place], [place] [id number] RAFAELA COREA Self - patient is the insured [facility] [address] [place] [address] RAFAELA COREA Self - patient is the insured Medical (General) History Medical History History ICD Code Colon polyps--He [...] but no other significant abnormalities Hyperlipidemia Denies [place],DM,CVA,Lung disease,renal dise ase Pancreatitis in 2014 due to alcohol EGD in 2014--small hiatal he rnia, gastritis, duodenitis, and reflux--biopsies were negative for H. pylori and negative for Cowan's esophagus. Elevated PSA but negative biopsies BPH Surgical History Surgery Date(Month/Year) Hernia surgery x3 Wrist surgery Carpal tunnel Sigmoid Colectomy in 04/2011 for divertculitis--this was done by Dr. Rocha at [facility] Knee surgery
== END 2025-01-13 08:54 | disposition home or self-care (01) ==
LOC: HO.HOS 08:36
PROVIDERS: PCP Internal Medicine; Visit Provider Orthopaedic Surgery
DX: M17.12 Unilateral primary osteoarthritis, left knee (principal)
CPT/HCPCS: 99213; G2211

== ENCOUNTER → 2025-01-13 08:36 | Outpatient (BNVA) | payer MEDICARE, SELFPAY | PROVIDERS: PCP Internal Medicine; Visit Provider Orthopaedic Surgery | DX: M17.12 Unilateral primary osteoarthritis, left knee (principal) | CPT/HCPCS: 99212 ==

== ENCOUNTER 2025-03-31 07:48 | Outpatient (AMB) | payer MEDICARE, SELFPAY ==
--- OUTSIDE RECORDS SUMMARY | 2023-11-13 06:30 | XMS_ITS ---
Author Organization [facility] Address [address] [place] [phone] Care Team Providers Care Heel Seat Flap Stapler Name Role Phone Vladimir Saeed MD Primary Care Provider Unavailab Rashaad Foster [phone] REASON FOR VISIT screening,hx polyps Encounters Encounter Location Date Provider Diagnosis [facility] [place] [address] [place] [id number] 11/13/2023 Rashaad Perez Plan Of Treatment Next Appt Details Provider Name:Rashaad Perez , 05/03/2025 08:30:00 AM, [address] [place] [address], [phone], Progress Notes * RAFAELA COREADOB: (65 yo M)Acc No.[id number]:11/13/2023 COLON WITH MAC Patient: RAFAELA WEST Provider: [...] MD Date: 0 11/13/2023 Generated for Prabhakar contreras/Deyvi/Naima on: 0 03/31/2025 07:50 AM EDT
--- OUTSIDE RECORDS SUMMARY | 2025-03-31 07:51 | XMS_ITS | Clinical Summary ---
Author Organization [facility] [address] [facility] Address [address] [place] [address] Phone Care Team Providers Care Sheet Combining Operator Name Role Phone Vladimir Saeed MD Primary Care Provider Allergies No known active allergies Medications atorvastatin [...] times a day. 21 each 5 Active Active Problems Problem Noted Date Diagnosed Date Acute cholecystitis 12/05/2024 Surgical History Surgery Date Site/Laterality Comments CARPAL TUNNEL RELEASE PROCEDURE: HISTORICAL CARPAL TUNNEL REL COLONOSCOPY PROCEDURE: HISTORICAL COLONOSCOPY OTHER SURGICAL HISTORY PROCEDURE: [place] COLECTOMY PARTIAL W/ANASTOMOSIS; COMMENT: Historical Medical History [...] your loved ones. For example, early childhood worker or elderly care for an older adult? [...] 90 12/18/2024 9:24 AM EDT Temperature 36.5 C (97.7 F) 12/18/2024 9:24 AM EDT Respiratory Rate 18 12/08/2024 7:50 AM EDT [...] Vaccine (1 - 2023-2 5 season) 2024 Influenza Vaccine (#1) 2025 , 10/20/2018 Social Influencers of Health Screening 12/05/2025 12/05/2024 Falls Risk Assessment 12/08/2025 12/08/2024 RSV Immunization Adult Patients (1 - 1-dose 75+ series) 01/02/2035 Hepatitis C Screening Completed 12/05/2024 HIB Vaccines [...] Procedure Name Priority Date/Time Associated Diagnosis Comments HEPATITIS PANEL, ACUTE WITH REFLEX TO CONFIRMATION Add-On 12/05/2024 7:28 AM EST from Last 3 Months or Most Recently Relevant to Health Maintenance Results * Hepatitis panel, acute with reflex to confirmation (12/05/2024 7:28 AM EST) Hepatitis B Surface Ag Negative Negative LAB CHEMISTRY METHOD 12/05/2024 12:16 PM EST [facility] Hepatitis A Antibody IgM Negative Negative LAB CHEMISTRY METHOD 12/05/2024 12:16 PM EST [facility] Hep B Core IgM Negative Negative LAB CHEMISTRY METHOD 12/05/2024 12:16 PM EST [facility] Hepatitis C Antibody Negative Negative LAB CHEMISTRY METHOD 12/05/2024 12:16 PM EST [facility] Blood Venous blood specimen / Unknown Venipuncture / Unknown 12/05/2024 7:28 AM EST 12/05/2024 7:33 AM EST Theresa MORTON LAB BLOOD ORDERABLES Final Re sult [facility] [address] [place] [address], from Last 3 Months or Most Recently Relevant to Health Maintenance Insurance [facility] Care Teams Sheet Combining Operator Relationship Specialty Start Date End Date Vladimir Saeed MD [address] [place] [id number] PCP - General 05/13/09
--- OUTSIDE RECORDS SUMMARY | 2025-03-31 07:51 | XMS_ITS ---
Author Name [facility] Unknown History of Medication Use Medication Directions Dispensed Refills Start Date End Date Stat lidocaine HCl 10 mg/mL (1 %) injection solution Take 10 mg by injection route. 12/14/2022 active triamcinolone acetonide 40 mg/mL suspension for injection Take 40 mg by injection route. 12/14/2022 active ciprofloxacin 500 mg tablet TAKE 1 TABLET BY MOUTH 1 HOUR BEFORE PROCEDURE AND 1 TABLET 1O HOURS AFTER 3 completed ciprofloxacin 500 mg tablet TAKE 1 TABLET BY MOUTH 1 HOUR BEFORE PROCEDURE AND 1 TABLET 1O HOURS AFTER 3 completed doxycycline hyclate 100 mg capsule TAKE 1 CAPSULE BY MOUTH TWICE A DAY 3 completed Paxlovid 300 mg (150 mg x 2)-100 mg tablets in a dose pack TAKE 2 TAB (300MG) NIRMATRELVIR & TAKE 1 TAB (100MG) RITONAVIR TWICE A DAY X5 DAYS 3 completed azelastine 0.05 % eye drops TAKE 1 DROP (OPHTHALMIC (EYE) - BILATERALLY) 2 TIMES PER DAY FOR 7 DAYS active fenofibrate 160 mg tablet TAKE 1 TABLET BY MOUTH EVERY DAY active omeprazole 20 mg capsule,delayed release TAKE 1 CAPSULE BY MOUTH EVERY DAY active omeprazole 20 mg capsule,delayed release TAKE 1 CAPSULE BY MOUTH EVERY DAY active tamsulosin 0.4 mg capsule TAKE 1 CAPSULE BY MOUTH TWICE A DAY active Problems Problem Status Onset Date Problem Type Date of Resoluti on Source Lumbar spondylosis active 2023-04-15 ProblemAct [facility] Arthritis of left knee active 2022-12-14 ProblemAct [facility] Pain of left knee joint active 2022-12-14 ProblemAct [facility] Low back pain active 2023-04-15 ProblemAct [facility] Paresthesia of lower extremity active 2023-04-15 ProblemAct [facility] Encounters Encounter Type Encounter Reason Primary Diagnosis Location Date Ambulatory [facility] 06/10/2023 Ambulatory [facility] 04/15/2023 Ambulatory [facility] 03/21/2023 Ambulatory [facility] 03/21/2023 Ambulatory [facility] 03/20/2023 Ambulatory [facility] 03/20/2023
--- OUTSIDE RECORDS SUMMARY | 2025-03-31 07:51 | XMS_ITS | Data Portability ---
Author Organization [place] [facility]ONE [place] Address [address] [place] [address] Care Team Providers Care Public Housing Interviewer Name Role Phone TATUM HUNTER Primary Care Provider [phone] Assessment Encounter Date Assessment Date Assessment LastModified [...] findings at length with the patient today. We discussed the nature and etiology of this problem along with current treatment options. We discussed the expected course and outcomes and what to expect. We also discussed risks and benefits. All of their questions were answered today, and there was exhibited understanding and comprehension of all that was discussed. 10 minutes were spent reviewing previous imaging and charting. 10 minutes were spent obtaining patient history. 5 minutes were spent on physical exam. 5minutes were spent explaining diagnosis and assessment. Today's [...] findings at length with the patient today. We discussed the nature and etiology of this problem along with current treatment options. We discussed the expected course and outcomes and what to expect. We also discussed risks and benefits. All of their questions were answered today, and there was exhibited understanding and comprehension of all that was discussed. Time Spent: 10 minutes were spent reviewing previous imaging and charting. 10 minutes were spent obtaining patient history. 5 minutes were spent on physical exam. 5minutes were spent explaining diagnosis and assessment. Today's [...] EMG report. The MRI was obtained at [facility] on May 20, 2009. Per report there is asymmetric transitional vertebra at the lumbosacral junction minor multilevel degenerative disc disease with small right lateral annular tear at L5 transitional vertebral level. EMG from [facility] on August 05, 2008 revealed left lateral [...] worse with prolonged standing. Treatments today include xkby-vvt-kjjtfpz medication, activity modification, thermal modalities. Plan: 63-year-old [...] weeks. Not available 04/15/2023 17:26:50 06/10/2023 06/10/2023 BAO Holden is a generally healthy 63-year-old male Who returns for continued management of his lumbar spine. He notes a remote back injury in 2007, He had an evaluation with MRI and nerve conduction test at that time. The MRI was obtained at [facility] on May 20, 2009. Per report there is asymmetric transitional vertebra at the lumbosacral junction minor multilevel degenerative disc disease with small right lateral annular tear at L5 transitional vertebral level. EMG from [facility] on August 05, 2008 revealed left lateral [...] notes some swelling in his left knee [email or web address] Not available 06/10/2023 09:40:33 Plan of Treatment [...] compression . 2022 023 Not available 14:11:29 XR, lumbosacral spine, 2 or 3 view 2022 023 [email or web address] [facility], [address], [place] [address], [place], [address], 3 17:06:15 Medication Orders triamcinolo ne acetonide 40 mg/mL suspension for injection 2022 023 [email or web address] [id number], [address] [place], [address], 3 09:30:35 lidocaine HCl 10 mg/mL (1 %) injection solution 2022 023 [email or web address] [id number], [address] [place], [address], 3 09:30:35 Patient TargetsNo targets recorded. Patient InstructionsNo instructions recorded. Reason for Referral None Reported. Problems Name Problem SNOMED Code Status Onset Date Resolution Date Notes Provider Name and Address Organization Details Recorded Time Low back pain 682700008 Active 2022 DMITRIY JALLOH PA-C [address], [place], [address], [place] [facility], [facility] 3 17:26:50 Paresthesia of lower extremity 915661137 Active 2022 DMITRIY JALLOH PA-C [address], [place], [address], [place] [facility], [facility] 3 17:28:04 Lumbar spondylosis 268644750 Active 2022 DMITRIY JALLOH PA-C [address], [place], [address], [place] [facility], [facility] 3 17:28:05 Arthritis of left knee 1832583826872 104 Active 2022 MINDI LORA PA-C [address], [facility], [address], [place] [facility], [facility] 3 09:28:04 Pain of left knee joint 7018699556899 07 Active 2022 MINDI LORA PA-C [address], [facility], [address], [place] [facility], [facility] 3 09:30:24 Problem Notes None recorded. Procedures Surgical History Date Name Laterality Status Provider Name and Address Organization Details Recorded Time 12/14/2022 Knee Joint/Burs a Asp & Inj completed MINDI LORA PA-C [address], [place], [address], [place] [facility], [facility] 12/14/2022 09:27:39 Imaging Results None recorded. [...] Updated DateTime 12/14/2022 177.8 cm 30.1 kg/m2 44181.4 g Noah Mcdaniels [place] - [facility], [facility] 12/14/2022 08:37:01 Date Recorded Body height Body mass index (BMI) Body weight Provider Name and Address Organization Details Last Updated DateTime 04/15/2023 172.72 cm 31.5 kg/m2 51034.62 g Fay Forbes [place] - [facility], [facility] 04/15/2023 16:08:24 Date Recorded Body height Body mass index (BMI) Body weight Provider Name and Address Organization Details Last Updated DateTime 06/10/2023 175.26 cm 30.7 kg/m2 [address].[address] [place] [facility], [facility] 06/10/2023 09:19:03 Social History Question Answer Notes LastModified by [employer] Details LastModified Time Tobacco Smoking Status Former Smoker Noah Mcdaniels dariusz, [place] - [facility], [facility] 12/14/2022 08:38:20 When Did You Quit Smoking? 11-15yearssi ncelastcigar ette Information not available 12/14/2022 How Many Years Have You Smoked Tobacco? 30 [email or web address] Information not available 12/14/2022 Sex: Unknown Functional Status Question Answer Note LastModified by [employer] Details LastModified Time How many times per week do you consume alcohol? 12 per week [email or web address] Information not available 12/14/2022 Do you use any illicit or recreational drugs? No [email or web address] Information not available 12/14/2022 Do you or have you ever used any other forms of tobacco or nicotine? No [email or web address] Information not available 12/14/2022 What is your level of alcohol consumption? Heavy [email or web address] Information not available 12/14/2022 Mental Status None recorded. Family History Relationship Description Onset Age of this Age Resolved Age Notes LastModified by Organization Details LastModified Time Brother Arthritis [email or web address] Not kaykay ilable 12/14/2022 08:38:40 Brother Hyperlipidem ia [email or web address] Not available 08:38:57 Father Hyperlipidem ia [email or web address] Not available 08:38:57 Medical History Condition Response High Cholesterol Y Past Encounters Encounter ID Performer Location Encounter Start Date Encounter Closed Date Diagnosis/Indication Diagnosis SNOMED-CT Code Diagnosis ICD10 Code Diagnosis Note [id number] ALVARADO MORRISON [address] [place] [address] 12/14/2022 08:22:20 12/14/2022 09:13:20 Arthritis of left knee 0478516297 400162 M13.862 Pain of le ft knee joint 7983079977 36862 M25.562 [id number] ALVARADO MORRIOSN [facility] [address] [facility] [address] [facility] [place] [address] 03/20/2023 13:38:16 03/20/2023 14:12:54 Follow-up visit [id number] Z09 [id number] ALVARADO PINTO [address] [place] [id number] 04/15/2023 15:40:09 04/15/2023 16:51:16 Low back pain 943574026 M54.50 Paresthesi a of lower extremity 721056212 R20.2 Lumbar spondylosis 16980 0009 M47.896 [id number] ALVARADO PINTO [facility] [address] [facility] [address] [place] [id number] 06/10/2023 08:59:29 06/10/2023 09:41:21 Low back pain 037420617 M54.50 Paresthesi a of lower extremity 051285843 R20.2 Lumbar spondylosis 23022 0009 M47.896 M79.605 Health Concerns Section Related Observation LastModified by Organization Detai ls LastModified Time None Recorded Concern Status LastModified by Organization Details LastModified Time None Recorded Advance Directives Directive None Recorded Payers Insurance Date Sequence Insurance Name Policy Number Policy Hunt Covered Member ID Hunt Member ID Guarantor Name 03/17/2023 1 [employer] (POS) [id number] Emma Sommer [id number] Navin Sommer Notes Date Note Type Note Provider Name and Address Organization Details Recorded Time 12/14/2022 text/html This is a [facility] 62-year-old male who comes in with a [...] details of Report MINDI LORA PA-C [address] [facility],[address], [place], [address], [place] [facility], [facility] 12/14/2022 09:32:29 03/20/2023 text/html Assessment & [...] for scheduled follow-up. MINDI LORA PA-C [address] [facility],[address], [place], [address], [place] [facility] 03/20/2023 15:35:00 06/10/2023 text/html Prior Visit [...] EMG report. The MRI was obtained at [facility] on May 20, 2009. Per report there is asymmetric transitional vertebra at the lumbosacral junction minor multilevel degenerative disc disease with small right lateral annular tear at L5 transitional vertebral level. EMG from [facility] on August 05, 2008 revealed left lateral [...] worse with prolonged standing. Treatments today include jbmn-wlw-ebglkbr medication, activity modification, thermal modalities. Plan: 63-year-old [...] DMITRIY JALLOH PA-C [address], [place], [address], [place] [facility] 06/10/2023 09:42:04
--- NOTE | 2025-03-31 07:57 | MHC.OFFVIS ---
Vital Signs 03/31/25 08:00 Height 5 ft 10 in Weight 210 lb BMI 30.1 Intake Visit Reasons: Inj-Left Knee Synvisc One Intake Note: Navin is a 65 year old male who presents today for a left knee Synvisc-One gel injection. He describes his knee pain as sharp in nature. His pain has gotten worse over the last few months in spite of continued non operative treatments. He has done physical therapy exercises which aggravated his pain. He wishes to hold off on surgery for as long as possible. Allergies morphine (MORPHINE) Allergy (Unknown, Unverified 03/31/25 08:00) UNKNOWN Medication List - Last Reconciled 03/31/25 by Andrew Cochran MD aspirin 81 mg PO DAILY atorvastatin 40 mg PO DAILY fenofibrate micronized 200 mg PO DAILY omeprazole 20 mg PO QAM tamsulosin 0.4 mg PO BID PFSH Medical History (Updated 09/03/24 @ 07:31 by Andrew Cochran MD) BPH (benign prostatic hyperplasia) Pancreatitis Hyperlipidemia Hiatal hernia GERD (gastroesophageal reflux disease) Tubular adenoma of colon Surgical History (Updated 11/11/23 @ 09:54 by Marleny Lester RN) Hx of knee surgery Hx of colectomy Hx of carpal tunnel repair History of surgery on wrist Hx of hernia repair History of esophagogastroduodenoscopy (EGD) H/O colonoscopy Physical Exam Vital Signs: BMI result Body Mass Index 30.1 Const Other: Well-nourished well-developed very friendly male awake alert and oriented x3 in no acute distress Extrem Other: Bilateral lower extremity examination shows good capillary refill, no skin lesions noted, normal sensation light touch Left knee examination shows a minimal effusion, palpable crepitus with range of motion, pain with range of motion, no instability Office Procedures AMB Joint Injection/Aspiration Joint Injection/Aspiration Primary Site: left knee Prep: site was prepped using aseptic technique Injected: other (48 mg Synvisco One) Procedure: The patient tolerated the procedure well Coding 13728 - Large joint Procedure code (CPT) selection complete Results Reviewed Results Reviewed: X-rays of the patient's left knee show joint space narrowing, subchondral sclerosis, no acute bony abnormalities Assessment & Plan Assessment & Plan (1) Osteoarthritis of left knee: Code(s): M17.12 - Unilateral primary osteoarthritis, left knee Category: Medical Plan Mr. Sommer presents with left knee pain due to osteoarthritis. The risks and benefits of a left knee Synvisc-One injection were discussed at length with the patient. The patient wished to proceed. He tolerated the injection well. He will continue with his activity modifications. He will contact me prior to his follow-up appointment in 3 months should any questions or concerns arise. Feel free to call me at any time should questions regarding his orthopedic management arise. I spent 21 minutes in reviewing the patient's records and imaging studies, seeing the patient and documenting in the medical record. Orders: Orders AMB Joint Injection/Aspiration Today M17.12 - Unilateral primary osteoarthritis, left knee Coding Level of Care Code Est Pt Level 3 (40040) Complex EM visit Add On G2211 Diagnoses Osteoarthritis of left knee M17.12 CPT Codes Coding - 59400 Large joint: 86337 - Large joint ([id number])
[2025-03-31 08:00] VITALS: BMI 30.1
== END 2025-03-31 08:04 | disposition home or self-care (01) ==
LOC: HO.HOS 07:49
PROVIDERS: PCP Internal Medicine; Visit Provider Orthopaedic Surgery
DX: M17.12 Unilateral primary osteoarthritis, left knee (principal)
CPT/HCPCS: 20610

== ENCOUNTER → 2025-03-31 07:48 | Outpatient (BNVA) | payer MEDICARE, SELFPAY | PROVIDERS: PCP Internal Medicine; Visit Provider Orthopaedic Surgery | DX: M17.12 Unilateral primary osteoarthritis, left knee (principal); N40.0 Benign prostatic hyperplasia without lower urinary tract symptoms; E78.5 Hyperlipidemia, unspecified; K21.9 Gastro-esophageal reflux disease without esophagitis; Z79.82 Long term (current) use of aspirin | CPT/HCPCS: 20610; J2003; J7325 ==

== ENCOUNTER 2025-05-03 07:27 | Day surgery (SDC) | payer MEDICARE, SELFPAY ==
--- OUTSIDE RECORDS SUMMARY | 2023-11-13 06:30 | XMS_ITS ---
Author Organization [facility] Address [address] [place] [phone] Care Team Providers Care Process Safety Specialist Name Role Phone Vladimir Saeed MD Primary Care Provider Unavailab Rashaad Foster [phone] REASON FOR VISIT screening,hx polyps Encounters Encounter Location Date Provider Diagnosis [facility] [address] [place] [id number] 11/13/2023 Rashaad Perez Plan Of Treatment Next Appt Details Provider Name:Rashaad Perez , 05/03/2025 08:30:00 AM, [address] [place] [address], [phone], Progress Notes * RAFAELA COREADOB: (65 yo M)Acc No.[id number]:11/13/2023 COLON WITH MAC Patient: RAFAELA WEST Provider: Kelin Perez MD :1960 A ge:63 Y S ex:Male Date:11/13/2023 Address:[address] [id number] Pcp:Vladimir Saeed MD Subjective: * Chief Complaints: * 1 . Screening,hx polyps. * Medical History: Objective: * Vitals: Assessment: Plan: * Treatment: * * The named appointment provid er may or may not be the originator of this progress note, and it is not deemed complete until electronically signed by the appointment provider. Sign off status: Pending * Provider: Kelin Perez MD Date: 0 11/13/2023 Generated for Prabhakar contreras/Deyvi/Lloyditting on: 0 04/22/2025 10:31 AM EDT
--- OUTSIDE RECORDS SUMMARY | 2025-04-22 10:30 | XMS_ITS | Clinical Summary ---
Author Organization [facility] [address] [facility] Address [address] [place] [address] Phone Care Team Providers Care Field Representatives Director Name Role Phone Vladimir Saeed MD Primary Care Provider [phone] Allergies No known active allergies Medications atorvastatin [...] PROCEDURE: HISTORICAL COLONOSCOPY OTHER SURGICAL HISTORY PROCEDURE: GA COLECTOMY PARTIAL W/ANASTOMOSIS; COMMENT: Historical Medical History [...] care for your loved ones. For example, childhood teacher or elderly care for an older [...] Panel) 10/31/2019 Colorectal Cancer Screening: Colonoscopy 10/31/2019 COVID-19 Vaccine (1 - 2023-2 5 season) 2024 Depression Screening 09/30/2024 Influenza Vaccine (#1) 2025 , 10/20/2018 Social [...] Negative LAB CHEMISTRY METHOD 12/05/2024 12:16 PM [facility] Hepatitis A Antibody IgM Negative Negative LAB CHEMISTRY METHOD 12/05/2024 12:16 PM [facility] Hep B Core IgM Negative Negative LAB CHEMISTRY METHOD 12/05/2024 12:16 PM [facility] Hepatitis C Antibody Negative Negative LAB CHEMISTRY METHOD 12/05/2024 12:16 PM [facility] Blood Venous blood specimen / Unknown Venipuncture / Unknown 12/05/2024 7:28 AM EST 12/05/2024 7:33 AM EST us Theresa MORTON LAB BLOOD ORDERABLES Final Re sult ALICE HENS[place] ([facility] [address] [place] [address], [place] [phone] from Last 3 Months or Most Recently Relevant to Health Maintenance Insurance [facility] [employer] Care Teams Field Representatives Director Relationship Specialty Start Date End Date Vladimir Saeed MD [address] [place] [address] PCP - General 05/13/09
--- OUTSIDE RECORDS SUMMARY | 2025-04-22 10:31 | XMS_ITS | Data Portability ---
Author Organization [place] [facility] R[facility] [place] Address [address] [place] [address] Care Team Providers Care Mortgage Loan Counselor Name Role Phone TATUM HUNTER Primary Care [...] EMG report. The MRI was obtained at [facility] on May 20, 2009. Per report there is asymmetric transitional vertebra at the lumbosacral junction minor multilevel degenerative disc disease with small right lateral annular tear at L5 transitional vertebral level. EMG from [facility] on August 05, 2008 revealed left [...] worse with prolonged standing. Treatments today include qgre-cxz-ewzttxu medication, activity modification, thermal modalities. Plan: 63-year-old [...] that time. The MRI was obtained at [facility] on May 20, 2009. Per report there is asymmetric transitional vertebra at the lumbosacral junction minor multilevel degenerative disc disease with small right lateral annular tear at L5 transitional vertebral level. EMG from [facility] on August 05, 2008 revealed left [...] notes some swelling in his left knee [email or web address] Not available 06/10/2023 09:40:33 Plan of Treatment [...] spine, 2 or 3 view 2022 023 [email or web address] [facility], [address], [place] [address], [place], [address], 3 17:06:15 Medication Orders triamcinolo ne acetonide 40 mg/mL suspension for injection 2022 023 [email or web address] [facility], [address] [place], [address], 3 09:30:35 lidocaine HCl 10 mg/mL (1 %) injection solution 2022 023 [email or web address] [id number], [address] [place], [address], 3 09:30:35 Patient TargetsNo targets recorded. Patient InstructionsNo instructions recorded. Reason for Referral None Reported. Problems Name Problem SNOMED Code Status Onset Date Resolution Date Notes Provider Name and Address Organization Details Recorded Time Arthritis of left knee 8626227776176 104 Active 2022 MINDI LORA PA-C [address], [place], [address], [place] [facility], [facility] 3 09:28:04 Pain of left knee joint 3708286697480 07 Active 2022 MINDI LORA PA-C [address], [place], [address], [place] [facility], [facility] 3 09:30:24 Low back pain 339137955 Active 2022 DMITRIY JALLOH PA-C [address], [place], [address], [place] [facility], [facility] 3 17:26:50 Paresthesia of lower extremity 509195986 Active 2022 DMITRIY JALLOH PA-C [address], [place], [address], [place] [facility], [facility] 3 17:28:04 Lumbar spondylosis 660300942 Active 2022 DMITRIY JALLOH PA-C [address], [place], [address], [place] [facility], [facility] 3 17:28:05 Problem Notes None recorded. Procedures Surgical History Date Name Laterality Status Provider Name and Address Organization Details Recorded Time 12/14/2022 Knee Joint/Burs a Asp & Inj completed MINDI LORA PA-C [address] [facility] [address], [place], [address], [place] [facility], [facility] 12/14/2022 09:27:39 Imaging Results None recorded. [...] Updated DateTime 12/14/2022 177.8 cm 30.1 kg/m2 05697.4 g Noah Mcdaniels [place] - [facility], [facility] 12/14/2022 08:37:01 Date Recorded Body height Body mass index (BMI) Body weight Provider Name and Address Organization Details Last Updated DateTime 04/15/2023 172.72 cm 31.5 kg/m2 06382.62 g Fay Forbes [place] - [facility], [facility] 04/15/2023 16:08:24 Date Recorded Body height Body mass index (BMI) Body weight Provider Name and Address Organization Details Last Updated DateTime 06/10/2023 175.26 cm 30.7 kg/m2 [address]3663.[address] [place] [facility], [facility] 06/10/2023 09:19:03 Social History Question Answer Notes LastModified by [employer] Details LastModified Time Tobacco Smoking Status Former Smoker Noah Mcdaniels dariusz, [place] [facility] 12/14/2022 08:38:20 When Did You Quit Smoking? 11-15yearssi ncelastcigar ette [email or web address] Information not available 12/14/2022 How Many Years Have You Smoked Tobacco? 30 [email or web address] Information not available 12/14/2022 Sex: Unknown Functional Status Question Answer Note LastModified by Organ[employer]at [employer] Details LastModified Time How many times per week do you consume alcohol? 12 per week [email or web address] Information not available 12/14/2022 Do you use any illicit or recreational drugs? No [email or web address] Information not available 12/14/2022 Do you or have you ever used any other forms of tobacco or nicotine? No [email or web address] Information not available 12/14/2022 What is your level of alcohol consumption? Heavy [email or web address] Information not available 12/14/2022 Mental Status None recorded. Family History Relationship Description Onset Age of this Age Resolved Age Notes LastModified by Organization Details LastModified Time Brother Arthritis [email or web address] Not kaykay ilable 12/14/2022 08:38:40 Brother Hyperlipidem ia [email or web address] Not available 08:38:57 Father Hyperlipidem ia [email or web address] Not available 08:38:57 Medical History Condition Response High Cholesterol Y Past Encounters Encounter ID Performer Location Encounter Start Date Encounter Closed Date Diagnosis/Indication Diagnosis SNOMED-CT Code Diagnosis ICD10 Code Diagnosis Note [id number] ALVARADO MORRISON [address] [place] [address] 12/14/2022 08:22:20 12/14/2022 09:13:20 Arthritis of left knee [id number] 075507 M13.862 Pain of le ft knee joint 9935651446 62031 M25.562 [id number] ALVARADO MORRISON [facility] 299 [facility] [address] [place] [address] 03/20/2023 13:38:16 03/20/2023 14:12:54 Follow-up visit [id number] Z09 [id number] ALVARADO PINTO [address] [place] [id number] 04/15/2023 15:40:09 04/15/2023 16:51:16 Low back pain 217232068 M54.50 Paresthesi a of lower extremity 685889598 R20.2 Lumbar spondylosis 83865 0009 M47.896 [id number] ALVARADO PINTO [place] [address] [facility] [address] [place] [id number] 06/10/2023 08:59:29 06/10/2023 09:41:21 Low back pain 382947483 M54.50 Paresthesi a of lower extremity 922705986 R20.2 Lumbar spondylosis 33510 0009 M47.896 M79.605 Health Concerns Section Related Observation LastModified by Organization Detai ls LastModified Time None Recorded Concern Status LastModified by Organization Details LastModified Time None Recorded Advance Directives Directive None Recorded Payers Insurance Date Sequence Insurance Name Policy Number Policy Hunt Covered Member ID Hunt Member ID Guarantor Name 03/17/2023 1 [employer] (POS) [id number] Emma Sommer [id number] Navin Sommer Notes Date Note Type Note Provider Name and Address Organization Details Recorded Time 12/14/2022 text/html This is a [facility] 62-year-old male who comes in [...] details of Report MINDI LORA PA-C [address] [facility],[address], [place], [address], [place] [facility], P 12/14/2022 09:32:29 03/20/2023 text/html Assessment & [...] for scheduled follow-up. MINDI LORA PA-C [address] [facility],[address], [place], [address], [place] [facility], [facility] 03/20/2023 15:35:00 06/10/2023 text/html Prior Visit [...] EMG report. The MRI was obtained at [facility] on May 20, 2009. Per report there is asymmetric transitional vertebra at the lumbosacral junction minor multilevel degenerative disc disease with small right lateral annular tear at L5 transitional vertebral level. EMG from [facility] on August 05, 2008 revealed left [...] worse with prolonged standing. Treatments today include skgc-cdp-sneobee medication, activity modification, thermal modalities. Plan: 63-year-old [...] DMITRIY JALLOH PA-C [address], [place], [address], [place] [facility], [facility] 06/10/2023 09:42:04
[2025-04-29 14:45] VITALS: BMI 29.6
--- NOTE | 2025-04-30 08:22 | HO.ANESPROP2 ---
Documented by User: Love Deleon NP 04/30/25 08:22 HPI - Anesthesia Eval Consult details Narrative: 65yo M for Colonoscopy [facility] Active Problems Active Problems: All Active Problems Osteoarthritis of left knee (Acute) Past Medical History Medical History (Updated 09/03/24 @ 07:31 by Andrew Cochran MD) BPH (benign prostatic hyperplasia) Pancreatitis Hyperlipidemia Hiatal hernia GERD (gastroesophageal reflux disease) Tubular adenoma of colon Surgical History Surgical History (Updated 05/03/25 @ 07:37 by Hortencia Maher RN) S/P cholecystectomy Hx of knee surgery Hx of colectomy Hx of carpal tunnel repair History of surgery on wrist Hx of hernia repair History of esophagogastroduodenoscopy (EGD) H/O colonoscopy Social History Social History Patient Tobacco Use Status: Former Tobacco user Use of substances other than those prescribed or required for medical reasons: Yes Are you DNR?: No Advance Directives: No Advance Directives Information Provided: Yes Poor oral hygiene: No Meds Allergies Allergy/AdvReac Type Severity Reaction Status Date / Time morphine (MORPHINE) Allergy Unknown Hives Verified 05/03/25 07:59 Home Medications ?Medication ?Instructions ?Recorded ?Confirmed ?Last Taken ?Type aspirin 81 mg tablet,delayed 81 mg PO DAILY 11/11/23 04/29/25 Unknown History release atorvastatin 40 mg tablet 40 mg PO DAILY 11/11/23 04/29/25 Unknown History fenofibrate micronized 200 mg 200 mg PO DAILY 11/11/23 04/29/25 Unknown History capsule omeprazole 20 mg capsule,delayed 20 mg PO QAM 11/11/23 04/29/25 Unknown History release tamsulosin 0.4 mg capsule 0.4 mg PO BID 11/11/23 04/29/25 Unknown History Exam Height,Weight and Vital Signs: Height 5 ft 10 in Weight 93.44 kg Assessment and Plan Assessment Anesthesia Assessment: Chart Reviewed Documented by User: Naseem Tai MD 05/03/25 08:48 [facility] Past Medical History Medical History (Updated 09/03/24 @ 07:31 by Andrew Cochran MD) BPH (benign prostatic hyperplasia) Pancreatitis Hyperlipidemia Hiatal hernia GERD (gastroesophageal reflux disease) Tubular adenoma of colon Functional capacity: independent ambulation Family History Family history of problems with anesthesia: No Surgical History Surgical History (Updated 05/03/25 @ 07:37 by Hortencia Maher RN) S/P cholecystectomy Hx of knee surgery Hx of colectomy Hx of carpal tunnel repair History of surgery on wrist Hx of hernia repair History of esophagogastroduodenoscopy (EGD) H/O colonoscopy History of Problems with Anesthesia: No Social History Social History Patient Tobacco Use Status: Former Tobacco user Use of substances other than those prescribed or required for medical reasons: Yes Are you DNR?: No Advance Directives: No Advance Directives Information Provided: Yes Poor oral hygiene: No Meds Allergies Allergy/AdvReac Type Severity Reaction Status Date / Time morphine (MORPHINE) Allergy Unknown Hives Verified 05/03/25 07:59 Home Medications ?Medication ?Instructions ?Recorded ?Confirmed ?Last Taken ?Type aspirin 81 mg tablet,delayed 81 mg PO DAILY 11/11/23 04/29/25 Unknown History release atorvastatin 40 mg tablet 40 mg PO DAILY 11/11/23 04/29/25 Unknown History fenofibrate micronized 200 mg 200 mg PO DAILY 11/11/23 04/29/25 Unknown History capsule omeprazole 20 mg capsule,delayed 20 mg PO QAM 11/11/23 04/29/25 Unknown History release tamsulosin 0.4 mg capsule 0.4 mg PO BID 11/11/23 04/29/25 Unknown History Exam Exam Date and Time: 05/04/2025 Airway TM Dist: >3cm Neck ROM: Full Loose/Missing/Broken Teeth: Yes Heart: rrr Lungs: cta Other: normal Assessment and Plan Final Anesthetic Review Family History of Problems with Anesthesia: No History of Problems with Anesthesia: No NPO: Yes ASA Class: II Final Preanesthetic Review: No Changes in Pt Med Stat, Meds/Allgs Chart Reviewed, Consent Obtained/Reviewed and Anes Risks/Benef Reviewed Patient Risk: Low Procedure Risk: Low Anesthetic Plan Anesthetic Plan: MAC: Disposition: Standard PACU
[2025-05-03 07:51] VITALS: BP 128/92; PULSE 84; RESP 16; TEMP 36.5; O2SAT 97
[2025-05-03] MEDS: Lactated Ringers 1,000 ML 100 ML IVCONT (07:59)
[2025-05-03 09:33] VITALS: TEMP 36.3
--- NOTE | 2025-05-03 09:36 | PM.OP ---
Brief Operative Note Date of Service: 05/03/25 Pre-op diagnosis: Screening Post-op diagnosis: other (Polyp) Procedure: Colonoscopy to the cecum and TI with cold snare polypectomy x 1 Surgeon: Rashaad Perez MD Anesthesia: MAC Was an Injection Molding Machine Setter used for this Procedure?: No Estimated blood loss (mL): 2.0 Pathology: other (A. Polyp at 60cm) Condition: stable Disposition: PACU
[2025-05-03 09:45] VITALS: BP 119/71; PULSE 77; RESP 16; TEMP 36.4; O2SAT 96
--- NOTE | 2025-05-03 10:48 | OP_ITS ---
DATE OF SERVICE: 05/03/2025 SURGEON: Rashaad Perez MD INDICATIONS: Patient presents for evaluation of personal history of a tubular adenoma of the colon and colorectal cancer screening. Full consent has been obtained from him for this including risks of bleeding and perforation. PREOPERATIVE DIAGNOSIS: Colorectal cancer screening and personal history of tubular adenoma of the colon. POSTOPERATIVE DIAGNOSIS: Colorectal cancer screening and personal history of tubular adenoma of the colon, colon polyp, occasional diverticulosis, internal hemorrhoids. PROCEDURE PERFORMED: Colonoscopy to the cecum and terminal ileum with cold snare polypectomy x1. ESTIMATED BLOOD LOSS: COMPLICATIONS: ANESTHESIA: Monitored anesthesia care. ASSISTANTS: SPECIMENS: DESCRIPTION OF PROCEDURE: Patient was placed in the left lateral decubitus position. The digital rectal exam revealed no abnormalities. The Numonyx video pediatric colonoscope was entered into the rectum and advanced easily to the cecum. Once in the cecum, I did identify normal-appearing cecal pouch other than an approximately 5 mm polyp, which was removed by cold snare polypectomy and then recovered by suction. The polypectomy site appeared clean without any sign of residual polyp nor significant bleeding. The remainder of the cecum including the appendiceal orifice appeared normal. The terminal ileum was cannulated and appeared normal. The scope was withdrawn back in the colon. The scope was then withdrawn assessing all mucosal surfaces carefully. Preparation was excellent throughout the colon although there were some small amounts of solid stool in the area of the descending colon that had to be irrigated and moved away. I did not visualize any other polyps, colitis, nor angiodysplasia. There were occasional diverticula in the ascending colon and descending colon. His anastomosis from his previous surgery waas at approximately 20 or 25 cm. This appeared normal. In the rectum, scope was retroflexed, visualizing internal hemorrhoids, but no other pathology. Rectal mucosa appeared normal. Scope was straightened and withdrawn from the patient. He tolerated the procedure well and was returned to the recovery area in stable condition. IMPRESSION: 1. Small colon polyp. 2. Occasional diverticulosis. 3. Internal hemorrhoids. 4. Normal anastomosis. PLAN: The results of the pathology will be checked. I would recommend a repeat colonoscopy in 5 years. He was advised not to use any aspirin or NSAIDs for 1 week. Rashaad Perez MD RMW/LISSETL / [phone] [facility]
== END 2025-05-03 10:18 | disposition home or self-care (01) ==
PROVIDERS: PCP Internal Medicine; Visit Provider Internal Medicine
PROC: 0DJD8ZZ Inspection of Lower Intestinal Tract, Via Natural or Artificial Opening Endoscopic (ICD-10-PCS; CPT 45378; principal; 2025-05-03 08:30)
DX: Z12.11 Encounter for screening for malignant neoplasm of colon (principal); D12.0 Benign neoplasm of cecum; K63.89 Other specified diseases of intestine; K57.30 Diverticulosis of large intestine without perforation or abscess without bleeding; K64.8 Other hemorrhoids; Z86.0101 Personal history of adenomatous and serrated colon polyps; Z83.719 Family history of colon polyps, unspecified; K21.9 Gastro-esophageal reflux disease without esophagitis; E78.5 Hyperlipidemia, unspecified; Z87.891 Personal history of nicotine dependence; Z79.02 Long term (current) use of antithrombotics/antiplatelets; Z79.899 Other long term (current) drug therapy; Z79.82 Long term (current) use of aspirin
CPT/HCPCS: 45385; 88305; J2003; J2704; J3010

== ENCOUNTER 2025-08-05 08:28 | Outpatient (AMB) | payer MEDICARE, SELFPAY ==
--- OUTSIDE RECORDS SUMMARY | 2025-05-03 03:30 | XMS_ITS ---
Author Organization [facility] Address [address] [place] [address] Care Team Providers Care Dredge Mechanic Name Role Phone Vladimir Saeed MD Primary Care Provider Unavailab Rashaad Foster [phone] REASON FOR VISIT screening, hx polyps Encounters Encounter Location Date Provider Diagnosis [facility] [address] [place] [address] [id number] 05/03/2025 Rashaad Perez Plan Of Treatment No Information Progress Notes * RAFAELA COREADOB: (65 yo M)Acc No.[id number]:05/03/2025 COLON WITH MAC Patient: Pavan PHILLIPS RAFAELA Michele Provider: Kelin Perez MD :1960 A ge:65 Y S ex:Male Date:05/03/2025 Address:[facility] [address] [id number] Pcp:Vladimir Saeed MD Subjective: * Chief Complaints: * 1 . Screening, hx polyps. * Medical History: Objective: * Vitals: Assessment: Plan: * Treatment: * * The named appointment provid er may or may not be the originator of this progress note, and it is not deemed complete until electronically signed by the appointment provider. Sign off status: Pending * Provider: Kelin Perez MD Date: 0 05/03/2025 Generated for Prabhakar contreras/Deyvi/eTransmitting on: 1 10/05/2024 08:52 AM EST
--- OUTSIDE RECORDS SUMMARY | 2025-05-11 05:30 | XMS_ITS ---
Author Organization [facility] Address [address] [place] [id number] Care Team Providers Care Engraver Steel Plate Name Role Phone Vladimir Saeed MD Primary Care Provider Unavailab Rashaad Foster [phone] REASON FOR VISIT screening colonoscopy Encounters Encounter Location Date Provider Diagnosis [facility] [address] [place] [id number] 05/11/2025 Rashaad Perez Plan Of Treatment No Information Progress Notes * RAFAELA COREADOB: (65 yo M)Acc No.[id number]:05/11/2025 Progress Notes Patient: PANCHITO WESTSANJAY Leny Provider: Kelin Perez MD :1960 A ge:65 Y S ex:Male Date:05/11/2025 Address:[facility] [address] [place] [id number] Pcp:Vladimir Saeed MD Subjective: * Chief Complaints: * 1 . Screening colonoscopy. * Medical History: Objective: * Vitals: Assessment: Plan: * Treatment: * * The named appointment provid er may or may not be the originator of this progress note, and it is not deemed complete until electronically signed by the appointment provider. Sign off status: Pending * Provider: Kelin Perez MD Date: 0 05/11/2025 Generated for Prabhakar contreras/Deyvi/eTransmitting on: 1 10/05/2024 08:53 AM EST
--- NOTE | 2025-08-05 08:32 | A.OFFVIS_ITS ---
Vital Signs 08/05/25 08:32 Height 5 ft 10 in Intake Visit Reasons: Left knee pain Intake Note: Navin is a 65 year old male who presents with complaints of progressively worsening left knee pain. He describes his pain as sharp in nature. He has had cortisone injections in the past which gave him minimal relief. He has also had both Euflexxa injections and a Synvisc-One injection which gave him good relief. He wishes to hold off on surgery for as long as possible. He has failed the last 3 months of conservative treatment which has included Tylenol, anti- inflammatory medicines and physical therapy exercises. He does wear a knee brace which gives him mild relief. Allergies morphine (MORPHINE) Allergy (Unknown, Verified 08/05/25 08:33) Hives Medication List - Last Reconciled 08/05/25 by Andrew Cochran MD aspirin 81 mg PO DAILY atorvastatin 40 mg PO DAILY fenofibrate micronized 200 mg PO DAILY omeprazole 20 mg PO QAM tamsulosin 0.4 mg PO BID PFSH Medical History (Updated 09/03/24 @ 07:31 by Andrew Cochran MD) BPH (benign prostatic hyperplasia) Pancreatitis Hyperlipidemia Hiatal hernia GERD (gastroesophageal reflux disease) Tubular adenoma of colon Surgical History S/P cholecystectomy Hx of knee surgery Hx of colectomy Hx of carpal tunnel repair History of surgery on wrist Hx of hernia repair History of esophagogastroduodenoscopy (EGD) H/O colonoscopy Social History Patient Tobacco Use Status: Former Tobacco user Physical Exam Const Other: Well-nourished well-developed very friendly male awake alert and oriented x3 in no acute distress Extrem Other: Bilateral lower extremity examination shows good capillary refill, no skin lesions noted, normal sensation light touch Left knee examination shows a minimal effusion, palpable crepitus with range of motion, pain with range of motion, no instability Results Reviewed Results Reviewed: X-rays of the patient's left knee taken previously show joint space narrowing, subchondral sclerosis, no acute bony abnormalities Assessment & Plan Assessment & Plan (1) Left knee pain: Code(s): M25.562 - Pain in left knee (2) Osteoarthritis of left knee: Code(s): M17.12 - Unilateral primary osteoarthritis, left knee Category: Medical Plan Mr. Sommer presents with left knee pain due to osteoarthritis. I had a lengthy discussion with the patient regarding the treatment options. He wishes to hold off on surgery if at all possible. I agree with this plan. Thus, I will see if his insurance company will cover a another viscosupplementation injection such as Synvisc-One, for his left knee. I will see him back once the injection is approved. He will contact me prior to that time should any questions or concerns arise. Feel free to call me at any time should questions regarding his orthopedic management arise. I spent 21 minutes in reviewing the patient's records and imaging studies, seeing the patient and documenting in the medical record. Coding Level of Care Code Est Pt Level 3 (42634) Complex EM visit Add On G2211 Diagnoses Left knee pain M25.562 Osteoarthritis of left knee M17.12
--- OUTSIDE RECORDS SUMMARY | 2025-08-05 08:53 | XMS_ITS | Encounter Summary ---
Author Organization [facility] Address [address] [place] [address] Care Team Providers Care Computer Systems Software Architect Name Role Phone Vladimir Saeed MD Primary Care Provider [phone] Encounter Details Date Type Department Care Team (Late st Contact Info) Description 06/28/2025 Lab Requisition [facility] [address] [facility] [place] [address] Cameron Navarrete, PRAVEEN [address] [facility] [address] [place] [phone] Gross hematuria Social History Tobacco Use Types Packs/Day Years [...] got money to buy more. Patient declined Within the past 12 months th e food we bought just didn't last and we didn't have money to get more. Patient declined 04/2025 Dependent Care Answer Date Recorded Do you need help finding or paying for care for your loved ones. For example, child protection specialist or elderly care for an older adult? [...] Date Recorded What is your living situation? Unrecognized valu e 12/05/2024 Interpersonal Safety Answer Date Record ed Physical Abuse Unrecognized value 12/05/2024 Verbal Abuse Unrecognized value 12/05/2024 Sex and Gender Information Value Date Recorded Sex Assigned at Male 12/04/2024 6:30 PM EST Legal Sex Male 2:24 AM EST Gender Identity Male 12/04/2024 6:30 PM EST Sexual Orientation Choose not to disclose 2024 6:30 PM EST documented as of this encounter Functional Status * Are you deaf or do you have serious difficulty hearing? Answer Date of Assessment Author No 12/04/2024 3:50 PM EST Sanchez RN * Are you blind or do you have serious difficulty seeing, even when wearing glasses? Answer Date of Assessment Author No 12/04/2024 3:50 PM Younger RN * Do you have serious difficulty walking or climbing stairs? Answer Date of Assessment Author No 12/04/2024 3:50 PM Younger RN * Do you have serious difficulty dressing or bathing? Answer Date of Assessment Author No 12/04/2024 3:50 PM Younger RN * Because of a physical, mental, or emotional condition, do you have serious difficulty doing errandsalone such as visiting the doctor? Answer Date of Assessment Author No 12/04/2024 3:50 PM Younger RN documented as of this encounter Mental Status * Because of a physical, mental, or emotional condition, do you have serious difficulty concentrating, remembering, or making decisions? (5 years old or older) Answer Entry Date Author No 12/04/2024 3:50 PM Younger RN documented in this encounter Plan of Treatment Not on file documented as of this encounter Procedures Procedure Name Priority Date/Time Associated Diagnosis Comments NON-GYNECOLOGIC CYTOLOGY Routine 06/17/2025 12:00 AM EDT Gross hematuria documented in this encounter Results * Non-gynecologic cytology (06/17/2025 12:00 AM EDT) Final Diagnosis A. Urine, Voided, [id number]: Negative for high grade urothelial carcinoma. Results of UroVysion fluorescence in situ hybridization (FISH) testing: CEP3: Normal CEP7: Normal CEP17: Normal LSI 9p21: Normal Interpretation: Normal profile Controls stained appropriately. Note: The results are intended as a screening device and should be interpreted in association with other clinical and pathological findings. 07/14/2025 4:23 PM EDT [facility] ([facility] at 1623 EDT Specimen A Adequacy Satisfactory for evaluation 07/14/2025 4:23 PM EDT [facility] ([facility] Clinical Information Gross hematuria R31.0 Urine Cytology/FISH (now) 07/14/2025 4:23 PM EDT [facility] Gross Description A. Urine, Voided, [id number]: Received one ThinPrep slide for cytology and one ThinPrep slide for UroVysion FISH 07/14/2025 4:23 PM EDT [facility] Disclaimer Unless otherwise specified, all tissue is 10% NB formalin fixed and paraffin embedded. Technical pathology services provided by [facility] at [address], [place] [address] (CLIA #[id number]/Olivia Alamo MD, Croze Cutter Helper) 07/14/2025 4:23 PM EDT [facility] Urine Urine specimen from urethra / Unknown 06/17/2025 06/28/2025 9:25 AM EDT us Cameron [facility] CYTOLOGY ORDERABL ES Final Result [facility] [address] [place] [address], documented in this encounter Visit Diagnoses Diagnosis Gross hematuria documented in this encounter Care Teams Computer Systems Software Architect Relationship Specialty Start Date End Date Vladimir Saeed MD [address] [place] [address] PCP - General 05/13/09 documented as of this encounter
--- OUTSIDE RECORDS SUMMARY | 2025-08-05 08:53 | XMS_ITS | Patient Health Record ---
Author Organization [facility] Address [address] [place] [address] Care Team Providers Care Business Services Intern Name Role Phone Vladimir Saeed MD Primary Care Provider UnavailRashaad Goss Unavailable [phone] Allergies No Known Allergies Results Component Value Reference Range Notes Pathology (Not yet reviewed by provider) Interpretation: Performing Lab:[facility], [address] [place] [id number] Notes/Report: Reason For Referral No Information Medications Medication SIG (Take, Route, Frequency, Duration) Notes Start Date End Date Status Aspir-81 Active Omeprazole 20 MG 1 capsule 30 minutes before morning meal Orally Once a day Active Tamsulosin HCl 0.4 MG TAKE 1 CAPSULE BY MOUTH TWICE A DAY Oral; Duration: 90 Active Atorvastatin Calcium 40 MG 1 tablet Oral ly Once a day Active Fenofibrate Micronized 200 MG 1 capsule with a meal Orally Once a day Active Glucosamine Active Multivitamin - 1 tablet Orally Once a day Active Social History AUDIT-C (Standard) Question Answer Notes Did you have a drink containing alcohol in the p ast year? No Points 0 Interpretation Negative Section Notes: Nonsmoker since 06/2011; 2-3 good drinks per day Nonsmoker since 06/2011; 2-3 good drinks per day--- pt quit alcholol as of 01/18/2015. Nonsmoker since 06/2011; 2-3 good drinks per day--- pt quit alcholol as of 01/18/2015. Nonsmoker since 06/2011; carlos t alchohol in 09/2024--heavy before that Problems Problem Type SNOMED Code ICD Code Onset Dates Problem Status W/U Status Risk Notes Problem Colon cancer screening (401489241) Colon cancer screening (Z12.11) Active confirmed Problem History of adenomatous polyp of colon (434593034) History of adenomatous polyp of colon (Z86.010) Active confirmed Problem Gastroesophageal reflux disease without esophagitis (010785743) Gastroesophageal reflux disease without esophagitis (K21.9) Active confirmed Vital Signs Blood pressure diastolic 77 mm Hg 02/03/2025 Height 70 in 02/03/2025 Blood pressure systolic 111 mm Hg 02/03/2025 Weight 206 lbs 02/03/2025 BMI 29.55 kg/m2 02/03/2025 Procedures Procedure Date Ordered Date Performed Result Body Sit e COLONOSCOPY 02/03/2025 N/A Encounters Encounter Location Date Provider Diagnosis [facility] [place] Outpatient [address] [place], [place] [id number] 05/03/2025 Rashaad Perez [facility] [address] [place] [address] 02/03/2025 Rashaad Ana History of adenomato us polyp of colon Z86.010 ; Gastroesophageal reflux disease without esophagitis K21.9 ; Colon cancer screening Z12.11 and Aspirin long-term use Z79.82 Assessments Encounter Date Diagnosis (ICD Code) Assessment Notes Treatment Notes Treatment Clinical Notes Section Notes 02/03/2025 History of adenomatous polyp of colon (ICD-10 - Z86.010) Overall, Hernan appears well from a clinical standpoint. He is not having any new or worrisome GI complaints. Given his previous history of tubular adenomas and his last colonoscopy being over 10 years ago, I did recommend a follow-up colonoscopy for further screening purposes. We did review the importance of this in regard to colorectal cancer prevention and/or early detection. Full consent is obtained from him for this, including risks of bleeding and perforation. The procedure will be done with monitored anesthesia care. He was given the below instructions regarding adjustment of his medication for the procedure. I did advise him to continue his daily omeprazole as well given history of reflux and his good symptomatic improvement on the medication. We did review the importance of remaining sober and trying to avoid alcohol completely going forward in regard to preventing any complications such as significant liver disease. Hernan was comfortable with this plan. Thank you again for allowing me to participate in Hernan's care. I shall continue to keep you advised of his progress.. 02/03/2025 Gastroesophageal reflux disease without esophagitis (ICD-10 - K21.9) Overall, Hernan appears well from a clinical standpoint. He is not having any new or worrisome GI complaints. Given his previous history of tubular adenomas and his last colonoscopy being over 10 years ago, I did recommend a follow-up colonoscopy for further screening purposes. We did review the importance of this in regard to colorectal cancer prevention and/or early detection. Full consent is obtained from him for this, including risks of bleeding and perforation. The procedure will be done with monitored anesthesia care. He was given the below instructions regarding adjustment of his medication for the procedure. I did advise him to continue his daily omeprazole as well given history of reflux and his good symptomatic improvement on the medication. We did review the importance of remaining sober and trying to avoid alcohol completely going forward in regard to preventing any complications such as significant liver disease. Hernan was comfortable with this plan. Thank you again for allowing me to participate in Hernan's care. I shall continue to keep you advised of his progress.. 02/03/2025 Colon cancer screening (ICD-10 - Z12.11) Overall, Hernan appears well from a clinical standpoint. He is not having any new or worrisome GI complaints. Given his previous history of tubular adenomas and his last colonoscopy being over 10 years ago, I did recommend a follow-up colonoscopy for further screening purposes. We did review the importance of this in regard to colorectal cancer prevention and/or early detection. Full consent is obtained from him for this, including risks of bleeding and perforation. The procedure will be done with monitored anesthesia care. He was given the below instructions regarding adjustment of his medication for the procedure. I did advise him to continue his daily omeprazole as well given history of reflux and his good symptomatic improvement on the medication. We did review the importance of remaining sober and trying to avoid alcohol completely going forward in regard to preventing any complications such as significant liver disease. Hernan was comfortable with this plan. Thank you again for allowing me to participate in Hernan's care. I shall continue to keep you advised of his progress.. 02/03/2025 Aspirin long-term use (ICD-10 - Z79.82) Overall, Hernan appears well from a clinical standpoint. He is not having any new or worrisome GI complaints. Given his previous history of tubular adenomas and his last colonoscopy being over 10 years ago, I did recommend a follow-up colonoscopy for further screening purposes. We did review the importance of this in regard to colorectal cancer prevention and/or early detection. Full consent is obtained from him for this, including risks of bleeding and perforation. The procedure will be done with monitored anesthesia care. He was given the below instructions regarding adjustment of his medication for the procedure. I did advise him to continue his daily omeprazole as well given history of reflux and his good symptomatic improvement on the medication. We did review the importance of remaining sober and trying to avoid alcohol completely going forward in regard to preventing any complications such as significant liver disease. Hernan was comfortable with this plan. Thank you again for allowing me to participate in Hernan's care. I shall continue to keep you advised of his progress.. Plan Of Treatment Pending Test Test Name Order Date COLONOSCOPY 02/03/2025 Pathology 05/03/2025 Future Test Test Name Order Date UPPER GI ENDOSCOPY 02/01/2015 COLONOSCOPY 06/18/2023 Insurance Providers Payer Name Payer Address Payer Phone Subscriber Number Group Number Insured Name Patient Relationship to Insured Coverage Start Date Coverage End Date [facility] [address] [place], [place] [id number] ALIRIO COREA Self - patient is the insured 5 Medical (General) History Medical History History ICD [...] but no other significant abnormalities Hyperlipidemia Denies VA,DM,CVA,Lung disease,renal dise ase Pancreatitis in 2014 due to alcohol EGD in 2014--small hiatal he rnia, gastritis, duodenitis, and reflux--biopsies were negative for H. pylori and negative for Cowan's esophagus. Elevated PSA but negative biopsies BPH Surgical History Surgery Date(Month/Year) Lap cholecystectomy with sepsis--at [facility] 12/06/2024 Knee surgery Sigmoid Colectomy in 04/2011 for divertculitis--this was done by Dr. Rocha at [facility] Carpal tunnel Wrist surgery Hernia surgery x3
--- OUTSIDE RECORDS SUMMARY | 2025-08-05 08:53 | XMS_ITS | Clinical Summary ---
Author Organization [facility] [address] [place] [address] Address [address] [place] [address] Phone Care Team Providers Care Crop Or Livestock Tenant Farmer Name Role Phone Vladimir Saeed MD Primary Care Provider [phone] Allergies No known active allergies Medications atorvastatin [...] Encounters Date Type Department Care Team Description 06/28/2025 Lab Requisition [facility] - Main Lab [address] [facility] [place] [address] Cameron Navarrete PA Gross hematuria from Last 3 Months Surgical History Surgery [...] ed Within the last 3 months, ho macy many times did you visit the emergency [...] care for your loved ones. For example, exceptional children's teacher or elderly care for an older [...] Health Maintenance Due Date Last Done Comments Colorectal Cancer Screening: Colonoscopy 1960 DTaP,Tdap,and Td Vaccines (1 - Tdap) 01/02/1979 Pneumococcal Vaccine: 50+ Years (1 of 1 - PCV) 01/02/2010 Zoster Vaccines (1 of 2) 01/02/2010 Abdominal Aortic Aneurysm (AAA) Screen 10/31/2019 Cholesterol Screening (Lipid Panel) 10/31/2019 Medicare Annual Wellness Visit 10/31/2019 Depression Screening 09/30/2024 Social Influencers of Health Screening 12/05/2025 12/05/2024 COVID-19 Vaccine (2 - 2023-2 5 season) 2025 06/09/2025 Falls Risk Assessment 12/08/2025 12/08/2024 RSV Immunization Adult Patients (1 - 1-dose 75+ series) 01/02/2035 Hepatitis C Screening Completed 12/05/2024 Influenza Vaccine Completed 06/09/2025, 07/17/2024, 10/20/2018 HIB Vaccines Aged Out No longer eligi [...] Routine 06/17/2025 12:00 AM EDT Gross hematuria HEPATITIS PANEL, ACUTE WITH REFLEX TO CONFIRMATION Add-On 12/05/2024 7:28 AM EST from Last 3 Months or Most Recently Relevant to Health Maintenance Results * Non-gynecologic cytology (06/17/2025 12:00 AM EDT) Final Diagnosis A. Urine, Voided, [id number]: Negative for high grade urothelial carcinoma. Results of UroVysion fluorescence in situ hybridization (FISH) testing: CEP3: Normal CEP7: Normal CEP17: Normal LSI 9p21: Normal Interpretation: Normal profile Controls stained appropriately. Note: The results are intended as a screening device and should be interpreted in association with other clinical and pathological findings. 07/14/2025 4:23 PM EDT [facility] at 1623 EDT Specimen A Adequacy Satisfactory for evaluation 07/14/2025 4:23 PM EDT [facility] Clinical Information Gross hematuria R31.0 Urine Cytology/FISH (now) 07/14/2025 4:23 PM EDT [facility] Gross Description A. Urine, Voided, [id number]: Received one ThinPrep slide for cytology and one ThinPrep slide for UroVysion FISH 07/14/2025 4:23 PM EDT [facility] Disclaimer Unless otherwise specified, all tissue is 10% NB formalin fixed and paraffin embedded. Technical pathology services provided by [facility] at [address] [facility] [address] [facility] [address], [place] [address] (CLIA #[id number]/Olivia Alamo MD, Employee Development Manager) 07/14/2025 4:23 PM EDT [facility] Urine Urine specimen from urethra / Unknown 06/17/2025 06/28/2025 9:25 AM EDT Cameron MORTON LAB CYTOLOGY ORDERABL ES Final Result [facility] [address] [place] [address], * Hepatitis panel, acute with reflex to confirmation (12/05/2024 7:28 AM EST) Hepatitis B Surface Ag Negative Negative LAB CHEMISTRY METHOD 12/05/2024 12:16 PM EST [facility] Hepatitis A Antibody IgM Negative Negative LAB CHEMISTRY METHOD 12/05/2024 12:16 PM EST [facility] Hep B Core IgM Negative Negative LAB CHEMISTRY METHOD 12/05/2024 12:16 PM EST [facility] Hepatitis C Antibody Negative Negative LAB CHEMISTRY METHOD 12/05/2024 12:16 PM EST [facility] Blood Venous blood specimen / Unknown Venipuncture / Unknown 12/05/2024 7:28 AM EST 12/05/2024 7:33 AM EST Theresa MORTON LAB BLOOD ORDERABLES Final Re sult [facility] [address] [place] [address], from Last 3 Months or Most Recently Relevant to Health Maintenance Insurance [facility] [employer] MEDICARE ADVANTAGE Care Teams Crop Or Livestock Tenant Farmer Relationship Specialty Start Date End Date Vladimir Saeed MD [address] [place] [address] [facility] - General 05/13/09
--- OUTSIDE RECORDS SUMMARY | 2025-08-05 08:54 | XMS_ITS | Data Portability ---
Author Organization [facility] [place] Address [address] [place] [address] Care Team Providers Care Assisted Living Administrator Name Role Phone TATUM HUNTER Primary Care [...] EMG report. The MRI was obtained at [facility] on May 20, 2009. Per report there is asymmetric transitional vertebra at the lumbosacral junction minor multilevel degenerative disc disease with small right lateral annular tear at L5 transitional vertebral level. EMG from [facility] on August 05, 2008 revealed left [...] worse with prolonged standing. Treatments today include [id number]-ajsifpp medication, activity modification, thermal modalities. Plan: 63-year-old [...] He will follow up in 4-6 weeks. [email or web address] Not available 04/15/2023 17:26:50 06/10/2023 06/10/2023 BAO Holden is a generally healthy 63-year-old male Who returns for continued management of his lumbar spine. He notes a remote back injury in 2007, He had an evaluation with MRI and nerve conduction test at that time. The MRI was obtained at [facility] on May 20, 2009. Per report there is asymmetric transitional vertebra at the lumbosacral junction minor multilevel degenerative disc disease with small right lateral annular tear at L5 transitional vertebral level. EMG from [facility] on August 05, 2008 revealed left [...] notes some swelling in his left knee [email or web address] Not available 06/10/2023 09:40:33 Plan of Treatment [...] for left-sided neural compression . 2022 023 [email or web address] Not available 14:11:29 XR, lumbosacral spine, 2 or 3 view 2022 023 [email or web address] [facility], [address], [place] [address], [place], [address], 3 17:06:15 Medication Orders triamcinolo ne acetonide 40 mg/mL suspension for injection 2022 023 [email or web address] [id number], [id number] [place], [address], 3 09:30:35 lidocaine HCl 10 mg/mL (1 %) injection solution 2022 023 [email or web address] [id number], [id number] [place], [address], 3 09:30:35 Patient TargetsNo targets recorded. Patient InstructionsNo instructions recorded. Reason for Referral None Reported. Problems Name Problem SNOMED Code Status Onset Date Resolution Date Notes Provider Name and Address Organization Details Recorded Time Arthritis of left knee joint 1459003346085 104 Active 2022 MINDI LORA PA-C [address], [place], [address], [place] [facility], P 3 09:28:04 Pain of left knee joint 9037395261049 07 Active 2022 MINDI LORA PA-C [address], [place], [address], [place] [facility], P 3 09:30:24 Low back pain 724884713 Active 2022 DMITRIY JALLOH PA-C [address], [place], [address], [place] [facility], P 3 17:26:50 Paresthesia of lower extremity 781173902 Active 2022 DMITRIY JALLOH PA-C [address], [place], [address], [place] [facility], P 3 17:28:04 Lumbar spondylosis 816837558 Active 2022 DMITRIY JALLOH PA-C [address], [place], [address], [place] [facility], P 3 17:28:05 Problem Notes None recorded. Procedures Surgical History Date Name Laterality Status Provider Name and Address Organization Details Recorded Time 12/14/2022 Knee Joint/Burs a Asp & Inj completed MINDI LORA PA-C [address], [place], [address], [place] [facility], P 12/14/2022 09:27:39 Imaging Results None recorded. [...] Updated DateTime 12/14/2022 177.8 cm 30.1 kg/m2 80842.4 g Noah Mcdaniels [place] [facility], P 12/14/2022 08:37:01 Date Recorded Body height Body mass index (BMI) Body weight Provider Name and Address Organization Details Last Updated DateTime 04/15/2023 172.72 cm 31.5 kg/m2 47398.62 g Fay Forbes [place] [facility], P 04/15/2023 16:08:24 Date Recorded Body height Body mass index (BMI) Body weight Provider Name and Address Organization Details Last Updated DateTime 06/10/2023 175.26 cm 30.7 kg/m2 [address] [place] [facility] [place] [facility], P 06/10/2023 09:19:03 Social History Question Answer Notes LastModified by [employer] Details LastModified Time Tobacco Smoking Status Former Smoker Noah Mcdaniels dariusz, [place] [facility], P 12/14/2022 08:38:20 When Did You Quit Smoking? 11-15yearssi ncelastcigar ette [email or web address] Information not available 12/14/2022 How Many Years Have You Smoked Tobacco? 30 Information not available 12/14/2022 Sex: Unknown Functional Status Question Answer Note LastModified by Organizat [facility] Details LastModified Time How many times per week do you consume alcohol? 12 per week Information not available 12/14/2022 Do you use any illicit or recreational drugs? No [email or web address] Information not available 12/14/2022 Do you or have you ever used any other forms of tobacco or nicotine? No [email or web address] Information not available 12/14/2022 What is your level of alcohol consumption? Heavy [email or web address] Information not available 12/14/2022 Mental Status None recorded. Family History Relationship Description Onset Age of this Age Resolved Age Notes LastModified by Organization Details LastModified Time Brother Arthritis [email or web address] Not kaykay ilable 12/14/2022 08:38:40 Brother Hyperlipidem ia [email or web address] Not available 08:38:57 Father Hyperlipidem ia [email or web address] Not available 08:38:57 Medical History Condition Response High Cholesterol Y Past Encounters Encounter ID Performer Location Encounter Start Date Encounter Closed Date Diagnosis/Indication Diagnosis SNOMED-CT Code Diagnosis ICD10 Code Diagnosis IMO Codes Diagnosis Note [id number] ALVARADO MORRISONfior [address] [address] 12/14/2022 08:22:20 12/14/2022 09:13:20 Arthritis of left knee joint 1248946256 266938 M13.862 Pain of le ft knee joint 3486361129 58001 M25.562 [id number] ALVARADO MORRISON [facility] [address] [facility] [address] [place] [address] 03/20/2023 13:38:16 03/20/2023 14:12:54 Follow-up visit [id number] Z09 [id number] [address] [place] [id number] 04/15/2023 15:40:09 04/15/2023 16:51:16 Low back pain 260352967 M54.50 Paresthesi a of lower extremity 789145179 R20.2 Lumbar spondylosis 60977 0009 M47.896 [id number] ALVARADO PINTO [address] [address] 06/10/2023 08:59:29 06/10/2023 09:41:21 Low back pain 658610620 M54.50 Paresthesi a of lower extremity 140868729 R20.2 Lumbar spondylosis 47593 0009 M47.896 M79.605 Health Concerns Section Related Observation LastModified by Organization Detai ls LastModified Time None Recorded Concern Status LastModified by Organization Details LastModified Time None Recorded Advance Directives Directive None Recorded Payers Insurance Date Sequence Insurance Name Policy Number Policy Hunt Covered Member ID Hunt Member ID Guarantor Name 03/17/2023 1 [employer] (POS) [id number] Emma Sommer [id number] Navin Sommer Notes Date Note Type Note Provider Name and Address Organization Details Recorded Time 12/14/2022 text/html This is a pleasant 62-year-old male who comes in with a [...] details of Report MINDI LORA PA-C [address] [facility] [address], [place], [address], [place] [facility], P 12/14/2022 09:32:29 03/20/2023 text/html Assessment & Plan: Date of visit 12/14/2022This is a pleasant [...] for scheduled follow-up. MINDI LORA PA-C [address] [facility] [address], [place], [address], [place] [facility], P 03/20/2023 15:35:00 06/10/2023 text/html Prior Visit 04/15/23 HPI: Navin is a generally healthy 63-year-old [...] EMG report. The MRI was obtained at [facility] on May 20, 2009. Per report there is asymmetric transitional vertebra at the lumbosacral junction minor multilevel degenerative disc disease with small right lateral annular tear at L5 transitional vertebral level. EMG from [facility] on August 05, 2008 revealed left [...] worse with prolonged standing. Treatments today include ixaj-qcx-fziglug medication, activity modification, thermal modalities. Plan: 63-year-old [...] JALLOH PA-C [address], [place], [address], [place] [facility], P 06/10/2023 09:42:04
== END 2025-08-05 08:52 | disposition home or self-care (01) ==
LOC: HO.HOS 08:29
PROVIDERS: PCP Internal Medicine; Visit Provider Orthopaedic Surgery
DX: M25.562 Pain in left knee (principal); M17.12 Unilateral primary osteoarthritis, left knee
CPT/HCPCS: 99213; G2211

== ENCOUNTER → 2025-08-05 08:28 | Outpatient (BNVA) | payer MEDICARE, SELFPAY | PROVIDERS: PCP Internal Medicine; Visit Provider Orthopaedic Surgery | DX: M25.562 Pain in left knee (principal); M17.12 Unilateral primary osteoarthritis, left knee | CPT/HCPCS: 99212 ==